=== PATIENT | male | born 1940 | race Caucasian/White ===

== ENCOUNTER 2019-11-25 02:11 | Outpatient (CLI) | payer OTHER, SELFPAY ==
[2019-11-25 16:24] LABS: Abs Immature Grans 0.01 k/cumm (0.0-0.09); Absolute Basophil Count 0.01 k/cumm (0.0-0.2); Absolute Eosinophil Count 0.08 k/cumm (0.0-0.7); Absolute Monocyte Count 0.89 k/cumm (0.11-0.7); Absolute Neutrophil Count 4.55 k/cumm (1.2-6.7); Basophils % 0.1; Eosinophils % 1.1; HCT 52.6 % (40.0-50.0); HGB 18.1 g/dL (13.5-17.5); Immature Grans % 0.1 %; Lymphocytes % 22.4; Mean Corp. HGB Concentration 34.4 g/dL (32.0-36.0); Mean Corpuscular Hemoglobin 31.3 pg (27.0-33.0); Mean Corpuscular Volume 90.8 fL (80-95); Mean Platelet Volume 9.3 fL (8.0-11.0); Monocytes % 12.5; Neutrophils % 63.8; Platelet Count 199 x1000/uL (130-400); RBC 5.79 m/cumm (4.50-6.00); RBC Distribution Width 13.3 % (11.8-14.1); White Blood Cell Count 7.14 k/cumm (4.4-10.8)
[2019-11-25 17:15] LABS: BUN 12 mg/dL (7-18); CREATININE 1.24 mg/dL (0.70-1.30); Estimated GFR 56.53 (mL/min/1.73m2); Ferritin 69 ng/mL (26-388)
[2019-11-25 17:31] LABS: Total Iron Binding Capacity 318 ug/dL (250-450)
[2019-11-28 11:02] LABS: Iron 140 ug/dL (65-175)
[2019-11-28 13:30] LABS: Transferrin 223 mg/dL (201-352)
[2019-11-29 12:07] LABS: Sex Hormone Binding Globulin 38.6 nmol/L (21.6-113.1)
[2019-11-30 18:40] LABS: Testosterone, Total 1160 ng/dL (240-950)
== END 2019-11-25 02:31 ==
PROVIDERS: PCP Internal Medicine; Visit Provider Nurse Practitioner Adult Health
DX: D75.1 Secondary polycythemia (principal); E29.1 Testicular hypofunction
CPT/HCPCS: 36415; 84402; 84403; 84520; 85027; 86255; 82040; 82565; 82728; 83540; 83550; 84270; 84466; 85025

== ENCOUNTER 2020-07-23 22:47 | Inpatient (IN) | payer OTHER, SELFPAY ==
--- NOTE | 2020-07-23 23:00 | W.ED.GENAD ---
Discharge Plan Disposition Patient Disposition: [facility] INPATIENT Condition: Good Discharge Details Clinical Impression: Fever, Sepsis, Pneumonia, Hypoxemia Primary Care Provider: Charissa Mendez ED Provider: Enmanuel Hammer Home Meds and New Rx's Prescriptions: No Action aspirin 81 MG tablet,chewable 81 mg PO DAILY RF: 0 albuterol sulfate [ProAir HFA] 8.5 GM HFA aerosol inhaler 1 - 2 puff Inhalation Q6H PRN RF: 0 multivitamin [Daily Value] 1 EACH tablet 1 ea PO DAILY RF: 0 ascorbic acid (vitamin C) [Vitamin C] 1,000 MG tablet 1,000 mg PO DAILY RF: 0 coenzyme Q10 50 MG capsule 100 mg PO DAILY RF: 0 niacinamide [Niacin (niacinamide)] 500 MG tablet 500 mg PO DAILY RF: 0 alprostadil [Edex] 20 MCG kit 20 mcg IC weekly RF: 0 cetirizine 10 MG tablet,chewable 10 mg PO DAILY RF: 0 omega-3 fatty acids-fish oil 1 EACH capsule 1 ea PO DAILY RF: 0 fluticasone furoate [Flonase Sensimist] 9.9 ML spray,suspension 9.9 ml NS DAILY RF: 0 azelastine 205.5 MCG/0.137 ML spray,non-aerosol 205.5 mcg NS BID RF: 0 cpap RF: 0 testosterone RF: 0 simvastatin 20 MG tablet 20 mg PO DAILY RF: 0 hydrochlorothiazide 12.5 MG capsule 25 mg PO DAILY RF: 0 doxycycline hyclate [Doryx] 100 MG tablet,delayed release (DR/EC) 100 mg PO BID Qty: 20 RF: 0 atorvastatin 20 mg tablet 20 mg PO DAILY RF: 0 amlodipine 2.5 mg tablet 2.5 mg PO DAILY RF: 0 ferrous sulfate 325 mg (65 mg iron) tablet 325 mg PO DAILY RF: 0 losartan 100 mg tablet 100 mg PO DAILY RF: 0 loratadine 10 mg Tablet 10 mg PO DAILY RF: 0 Medical Decision Making 79-year-old male with a past medical history of reactive airway disease, high cholesterol, hypertension, sleep apnea, presents today for fever. The patient sees a physician in [place] regularly for evaluation of his heart as he has been having occasional skipped beats. He has been going back and forth for the last few weeks, he was just down there within the past week. Today he noticed a sudden onset fever, T-max at home was 102-103. He took Tylenol and Motrin, and came to the ER for further evaluation. He denies any chest pain shortness of breath. He denies any tearing or ripping sensation or chest heaviness. He denies any nausea vomiting or diarrhea. He denies any other sick contacts that he is aware of. He did smoke but quit back in 1983. He does state that when he was younger he used to get pneumonia fairly regularly this feels somewhat similar although he denies any significant cough at this time. He denies headache or neck pain. No other complaints at this time. No other modifying factors. Physical exam demonstrates mild tachycardia, he is febrile, oxygen saturation is in the low 90s, dropped to 89 when he began speaking. However his respirations do not appear overly labored. He denies any smoke/tobacco use since 1983. Lung sounds are slightly diminished but otherwise clear. Differential includes coronavirus, less likely PE. Bacterial pneumonia is also on the differential in conjunction with mild reactive airway disease. He has 2 breathing treatments, gently rehydrate, monitor closely and reassess. 1:30 AM Laboratory work-up has returned, white count is only 12, mild neutrophilia, mild lymphopenia, D-dimer high, VBG stable, elevated lactate of 2.2, electrolytes stable aside for slightly low potassium at 3.2 which will be corrected. Troponin stable EKG unremarkable, pro Galo slightly elevated. CT scan shows bilateral mild atelectasis versus infiltrate. No other significant abnormalities. Rapid RSV flu and Covid have all returned negative however the patient did just have symptom onset within the last 12 hours, so I would not be surprised if this is a potential Covid false negative. Patient's oxygenation remains in the low 90s to high 80s even after breathing treatments. I do feel that the patient would benefit from his admission due to his low oxygen, risk factors and symptomatology. Suspect the source/etiology is essentially viral however out of an abundance of precaution after discussion with hospitalist will start a dose of Rocephin and doxycycline here. Patient has already received Decadron. Patient will be admitted for further management. Symptoms appear inconsistent with meningitis at this time. Still pending urinalysis. I have extensively reviewed the treatment plan with the patient. I have addressed all patient concerns at this time. I have also discussed the plan with the admitting physician and they agree with the current assessment and plan and have agreed to assume responsibility for the patient. All parties demonstrate verbal understanding and agreement with our assessment and plan at this time. EKG 00: 09 Rate 89, sinus rhythm, intervals normal, no significant ST elevations or depressions, inverted T wave is present in lead III. No evidence of STEMI. No prior EKG for comparison. FINDINGS: Pulmonary arteries: No evidence of pulmonary embolism. Aorta: No aortic aneurysm. No aortic dissection. Lungs: Mild bibasilar atelectasis or infiltrate, greater on the left. Pleural space: No pleural effusion or pneumothorax. Heart: The heart is mildly enlarged. No pericardial effusion. Lymph nodes: No pathologically enlarged lymph nodes. Gallbladder and bile ducts: Cholelithiasis. Kidneys and ureters: There are multiple renal cysts. Bones/joints: No acute fracture. No destructive bone lesion. Soft tissues: Unremarkable. Other findings: There is motion artifact. IMPRESSION: 1. No evidence of pulmonary embolism. 2. Mild bibasilar atelectasis or infiltrate. 3. Cholelithiasis. Thank you for allowing us to participate in the care of your patient. Dictated and Authenticated by: Shaquille Harding MD 07/24/2020 1:12 AM Eastern Time ([place] & [place]) HPI General Date/Time Provider Initiated Documentation: 07/23/20 22:47. HPI Narrative: 79-year-old male with a past medical history of reactive airway disease, high cholesterol, hypertension, sleep apnea, presents today for fever. The patient sees a physician in [place] regularly for evaluation of his heart as he has been having occasional skipped beats. He has been going back and forth for the last few weeks, he was just down there within the past week. Today he noticed a sudden onset fever, T-max at home was 102-103. He took Tylenol and Motrin, and came to the ER for further evaluation. He denies any chest pain shortness of breath. He denies any tearing or ripping sensation or chest heaviness. He denies any nausea vomiting or diarrhea. He denies any other sick contacts that he is aware of. He did smoke but quit back in 1983. He does state that when he was younger he used to get pneumonia fairly regularly this feels somewhat similar although he denies any significant cough at this time. He denies headache or neck pain. No other complaints at this time. No other modifying factors. Related Data Home Medications Medication Instructions Recorded Confirmed hydrochlorothiazide 25 mg PO DAILY 07/21/15 07/24/20 simvastatin 20 mg PO DAILY 07/21/15 01/06/18 albuterol sulfate [ProAir HFA] 1 - 2 puff INHALATION Q6H PRN 11/17/17 01/06/18 inhaler alprostadil [Edex] 20 mcg IC weekly kit 11/17/17 01/06/18 ascorbic acid (vitamin C) [Vitamin 1,000 mg PO DAILY 11/17/17 01/06/18 C] aspirin 81 mg PO DAILY tab-cap 11/17/17 07/24/20 azelastine 205.5 mcg NS BID 11/17/17 01/06/18 cetirizine 10 mg PO DAILY tab-cap 11/17/17 01/06/18 coenzyme Q10 100 mg PO DAILY 11/17/17 07/24/20 fluticasone furoate [Flonase 9.9 ml NS DAILY 11/17/17 01/06/18 Sensimist] multivitamin [Daily Value] 1 ea PO DAILY 11/17/17 01/06/18 niacinamide [Niacin (niacinamide)] 500 mg PO DAILY 11/17/17 07/24/20 omega-3 fatty acids-fish oil 1 ea PO DAILY 11/17/17 07/24/20 doxycycline hyclate [Doryx] 100 mg PO BID #20 tabcr 01/06/18 amlodipine 2.5 mg PO DAILY 07/24/20 07/24/20 atorvastatin 20 mg PO DAILY 07/24/20 07/24/20 ferrous sulfate 325 mg PO DAILY 07/24/20 07/24/20 loratadine 10 mg PO DAILY 07/24/20 07/24/20 losartan 100 mg PO DAILY 07/24/20 07/24/20 Previous Rx's Medication Instructions Recorded doxycycline hyclate [Doryx] 100 mg PO BID #20 tabcr 01/06/18 Allergies Allergy/AdvReac Type Severity Reaction Status Date / Time tree and shrub pollen AdvReac Mild spring time Unverified 01/06/18 09:39 Review of Systems All systems reviewed & are unremarkable except as noted in HPI and below PFSH Medical History Asthma HTN (hypertension) Surgical History Colonoscopy - MAC (12/04/17) Family History Father Colon cancer Social History Smoking/Tobacco Use Status: Former Tobacco Use Smoking risk assessment performed?: Yes Alcohol Intake: current Alcohol Intake frequency: 0-2 drinks per day Alcohol type: wine Drug use: Never Substance use type: does not use Do you feel safe at home: Yes Do you feel safe in your relationship?: Yes Exam Narrative Exam Narrative: 1.Const: Well-nourished, Well-developed, appearing stated age 2.Eyes: PERRL, no conjunctival injection, and symmetrical lids. 3.ENT: Atraumatic external nose and ears. Dry MM. Neck: Symmetric, trachea midline, No thyromegaly. No erythema in the posterior oropharynx. 4.CVS: +S1/S2, No murmurs or gallops. Peripheral pulses 2+ and equal in all extremities. Brisk capillary refill in all extremities. 5.RESP: Unlabored respiratory effort. Clear to auscultation bilaterally but slightly diminished. No wheezes rales or rhonchi 6.GI: Soft, Nontender/Nondistended, No hepatosplenomegaly. No guarding or rebound. 7.MSK: Normocephalic/Atraumatic, Extremities w/o deformity or ttp No cyanosis or clubbing, Normal movement of all extremities, no calf tenderness. 8.Skin: Warm, Dry. No rashes or lesions. 9.Neuro: lathe sander II-XII grossly intact. Sensation grossly intact, no focal neurologic deficits. 10.Psych: (AAO) x3. Appropriate mood and affect
[2020-07-23 23:03] VITALS: BP 132/64; PULSE 111; RESP 20; TEMP 38.4; O2SAT 91
--- NOTE | 2020-07-23 23:15 | DI.CT_ITS ---
EXAM: CT CHEST PE CTA CLINICAL HISTORY: SOB, hypoxic, febrile, tachy, concern for PE/covid. TECHNIQUE: Imaging Protocol: Axial CT angiography was performed with multi-slice acquisition and mu lti-planar and/or 3D reconstructions. CONTRAST MATERIAL: Intravenous: Omnipaque 350 Contrast volume:100 mL COMPARISON: No exams were available for comparison FINDINGS: Pulmonary Arteries: No evidence of filling defect to suggest pulmonary emboli. Tracheobronchial tree: Patent where visualized. Mediastinum and Mavis: There is a small hiatal hernia. Pulmonary parenchyma: There are infiltrates seen in the dependent portions of the lungs bilaterally. No focal consolidating infiltrates are seen. No architectural distortion. Pleura: No effusion or pneumothorax. Heart: The heart is mildly enlarged. Mild coronary artery calcification is present. No significant pericardial effusion is present. Aorta: Thoracic aorta non-dilated. Atherosclerosis. No evidence of aortic dissection. Upper abdomen: Cholelithiasis. Left renal cyst. No biliary ductal dilatation. Bones: Degenerative changes in the spine. Soft tissues: Unremarkable. IMPRESSION: 1. No evidence of pulmonary embolism, thoracic aortic dissection or aneurysm. 2. Dependent infiltrates in the lung bases. This may represent atelectasis or pneumonia. 3. Cholelithiasis. RADIATION DOSE DELIVERED: 483.68mGy.cm Total DLP DATA REPOSITORY: All CT scans at this facility are submitted to the National Radiology Data Registry (NRDR) Dose Index Registry (DIR) with the [employer] (ACR). RADIATION OPTIMIZATION: All CT scans at this facility use at least one of these dose optimization te chniques: automated exposure control; mA and/or kV adjustment per patient size (includes targeted exa ms where dose is matched to clinical indication); or iterative reconstruction.
--- NOTE | 2020-07-23 23:15 | RT.EKG_ITS ---
APPROVED REPORT Exam: Resting ECG Patient Location: E HR:89 bpm ECG Measurements Heart Rate 89 AXIS MI 198 P 43 QRSd 113 QRS -17 QT 363 T 9 QTc 442 Conclusion Sinus rhythm...normal P axis, V-rate 60- 99 Probable left atrial enlargement...P >50mS, <-0.10mV V1 Physician:Rate 89, sinus rhythm, intervals normal, no significant ST elevations or depressions, inver danay T wave is present in lead III. No evidence of STEMI. No prior EKG for comparison.
[2020-07-23 23:16] VITALS: BP 126/59; PULSE 113; O2SAT 91
[2020-07-23] MEDS: Albuterol/Ipratropium 3 ML UPD VIAL 6 ML UPD (23:42)
[2020-07-23] MEDS: Dexamethasone 10 MG/ML VIAL 6 MG IVP (23:42)
[2020-07-23 23:45] VITALS: RESP 26; O2SAT 91
[2020-07-23 23:46] LABS: BE (Venous) 3 mmol/L (-2-3); HCO3 (Venous) 27 mmol/L (23-28); O2 Sat (Venous) 93 %; TCO2 (Venous) 22 mmol/L (24-29); pCO2 (Venous) 39 mmHg (41-51); pH (Venous) 7.45 (7.31-7.41); pO2 (Venous) 63 mmHg
[2020-07-23 23:47] LABS: Abs Immature Grans 0.04 10^3/uL (0.0-0.06); Absolute Basophil Count 0.01 10^3/uL (0.0-0.2); Absolute Eosinophil Count 0.01 10^3/uL (0.0-0.7); Absolute Lymphocyte Count 0.37 10^3/uL (1.2-3.4); Absolute Monocyte Count 0.79 10^3/uL (0.1-0.8); Basophils % 0.1; Eosinophils % 0.1; HCT 52.3 % (40.0-50.0); HGB 17.8 g/dL (13.5-17.5); Immature Grans % 0.3; Lactate 2.2 mmol/L (0.6-1.4); Lymphocytes % 3.1; MCH 30.9 pg (27.0-33.0); MCV 90.8 fL (80-95); MPV 9.6 fL (8.0-11.0); Monocytes % 6.6; Neutrophils % 89.8; Nucleated RBC 0 %; Platelet Count 201 10^3/uL (130-400); RBC 5.76 10^6/uL (4.36-5.78); RDW 13.1 % (11.8-14.1); WBC 12.04 10^3/uL (4.4-10.8)
[2020-07-23 23:49] LABS: Absolute Neutrophil Count 10.81 10^3/uL (1.2-6.7)
[2020-07-24] VITALS (17 sets, daily range): BP systolic 108–135; BP diastolic 55–76; PULSE 61–87; RESP 1–19; TEMP 36–37.3; O2SAT 91–98
[2020-07-24] MEDS: Normal Saline 500 ML IV (00:02)
[2020-07-24 00:04] LABS: ALT 36 U/L (16-63); AST 29 U/L (15-37); Albumin 3.8 g/dL (3.4-5.0); Alkaline Phosphatase 77 U/L (46-116); Anion Gap 13.2 mmol/L (3-11); BUN 19 mg/dL (7-18); Bilirubin, Total 0.9 mg/dL (0.2-1.0); C-Reactive Protein 0.29 mg/dL (0.0-0.3); CO2 25.8 mmol/L (21.0-32.0); CREATININE 1.44 mg/dL (0.70-1.30); Chloride 101 mmol/L (98-107); Estimated GFR 47.45 (mL/min/1.73m2); Glucose 131 mg/dL (74-106); LDH 137 U/L (85-227); Potassium 3.2 mmol/L (3.5-5.1); Sodium 140 mmol/L (136-145); Total Protein 6.9 g/dL (6.4-8.2)
[2020-07-24 00:09] LABS: Troponin I < 0.05 ng/mL (<0.06)
[2020-07-24 00:19] LABS: D-Dimer 1009 ng/mlFEU (<500)
[2020-07-24] MEDS: Omnipaque 350 MG/ML 100 ML BTL IJ (00:19)
[2020-07-24 00:31] LABS: Source Nasopharynx
[2020-07-24 00:32] LABS: Ferritin 109 ng/mL (26-388)
[2020-07-24 00:37] LABS: Procalcitonin 0.9 ng/mL
[2020-07-24] MEDS: POTASSIUM CHLORIDE 20 MEQ/100 ML BAG 50 MEQ IVPB (00:45)
[2020-07-24] MEDS: Normal Saline Flush 10 ML SYR IVP ×4 (00:48→21:33)
[2020-07-24] MEDS: Normal Saline - Diluent 50 ML VIAL IV (00:48)
--- NOTE | 2020-07-24 01:12 | DI.VRAD_ITS ---
PROCEDURE INFORMATION: Exam: CT Angiography Chest With Contrast Exam date and time: 07/23/2020 11:31 PM Age: 79 years old Clinical indication: Fever and shortness of breath and other: Hypoxic, tachy; Patient HX: SOB, hypoxic, febrile, tachy, concern for pe/covid TECHNIQUE: Imaging protocol: Computed tomographic angiography of the chest with intravenous contrast. 3D rendering (Not supervised by radiologist): MIP and/or 3D reconstructed images were created by the technologist. Radiation optimization: All CT scans at this facility use at least one of these dose optimization techniques: automated exposure control; mA and/or kV adjustment per patient size (includes targeted exams where dose is matched to clinical indication); or iterative reconstruction. Contrast material: OMNIPAQUE 350; Contrast volume: 100 ml; Contrast route: INTRAVENOUS (IV); COMPARISON: CR CHEST 2 VIEWS PA,LAT 12/30/2017 2:08 PM FINDINGS: Pulmonary arteries: No evidence of pulmonary embolism. Aorta: No aortic aneurysm. No aortic dissection. Lungs: Mild bibasilar atelectasis or infiltrate, greater on the left. Pleural space: No pleural effusion or pneumothorax. Heart: The heart is mildly enlarged. No pericardial effusion. Lymph nodes: No pathologically enlarged lymph nodes. Gallbladder and bile ducts: Cholelithiasis. Kidneys and ureters: There are multiple renal cysts. Bones/joints: No acute fracture. No destructive bone lesion. Soft tissues: Unremarkable. Other findings: There is motion artifact. IMPRESSION: 1. No evidence of pulmonary embolism. 2. Mild bibasilar atelectasis or infiltrate. 3. Cholelithiasis. Dictated and Authenticated by: Shaquille Harding MD. Ordering:ELIZABETH Singer MD
[2020-07-24 01:18] LABS: COVID-19 PCR Negative (Negative); Influenza A PCR Negative (Negative); Influenza B PCR Negative (Negative); RSV PCR Negative (Negative)
--- NOTE | 2020-07-24 01:22 | W.PM.HP.N ---
Date of service: 07/24/20 Time of Service: Assessment and Plan Assessment and plan (1) Fever: Status: Acute Assessment and plan: Fever. Unclear source at present. The drop in O2 sats (states he usually runs mid-90s) along with (questionable) CT findings suggestive of pulmonary source and will treat for bacterial pneumonia provisionally, at least until blood cxx return (note that U/A still pending at this time). I would add that I would keep Covid in differential with potential false negative test as this is early in course of whatever illness he has. History of Present Illness History of Present Illness Chief Complaint: fever Narrative: 79 male here with one day of fever, to 103 at home, along with myalgias. Note recent travel (past week) to [place] to see his doctor. In ER findings of note for temp to 38.4, O2 sats low 90s, white count 12, CTA neg PE with bibasilar atelectatsis vs infiltrate, d-Dimer 1009 and COVID PCR negative (flu also neg). Patient ordered for Rocephin/Doxy and admitted for further management. Denies cough, CP or SOB. At present time says he feels much better. Review of Systems All systems reviewed & are unremarkable except as noted in HPI and below PFSH Medical History Asthma HTN (hypertension) Surgical History Colonoscopy - MAC (12/04/17) Family History Father Colon cancer Social History Smoking/Tobacco Use Status: Former Tobacco Use Smoking risk assessment performed?: Yes Alcohol Intake: current Alcohol Intake frequency: 0-2 drinks per day Alcohol type: wine Drug use: Never Substance use type: does not use Do you feel safe at home: Yes Do you feel safe in your relationship?: Yes Meds Home Medications and Allergies Home Medications Medication Instructions Recorded Confirmed Type hydrochlorothiazide 25 mg PO DAILY 07/21/15 07/24/20 History simvastatin 20 mg PO DAILY 07/21/15 01/06/18 History Cpap 11/17/17 Clinic Testosterone 11/17/17 Clinic albuterol sulfate [ProAir HFA] 1 - 2 puff INHALATION Q6H PRN 11/17/17 01/06/18 History inhaler alprostadil [Edex] 20 mcg IC weekly kit 11/17/17 01/06/18 History ascorbic acid (vitamin C) [Vitamin 1,000 mg PO DAILY 11/17/17 01/06/18 History C] aspirin 81 mg PO DAILY tab-cap 11/17/17 07/24/20 History azelastine 205.5 mcg NS BID 11/17/17 01/06/18 History cetirizine 10 mg PO DAILY tab-cap 11/17/17 01/06/18 History coenzyme Q10 100 mg PO DAILY 11/17/17 07/24/20 History fluticasone furoate [Flonase 9.9 ml NS DAILY 11/17/17 01/06/18 History Sensimist] multivitamin [Daily Value] 1 ea PO DAILY 11/17/17 01/06/18 History niacinamide [Niacin (niacinamide)] 500 mg PO DAILY 11/17/17 07/24/20 History omega-3 fatty acids-fish oil 1 ea PO DAILY 11/17/17 07/24/20 History doxycycline hyclate [Doryx] 100 mg PO BID #20 tabcr 01/06/18 Rx amlodipine 2.5 mg PO DAILY 07/24/20 07/24/20 History atorvastatin 20 mg PO DAILY 07/24/20 07/24/20 History ferrous sulfate 325 mg PO DAILY 07/24/20 07/24/20 History loratadine 10 mg PO DAILY 07/24/20 07/24/20 History losartan 100 mg PO DAILY 07/24/20 07/24/20 History Allergies Allergy/AdvReac Type Severity Reaction Status Date / Time tree and shrub pollen AdvReac Mild spring time Unverified 01/06/18 09:39 Exam Narrative Exam Narrative: 114/62, 85, 37.3, 19, 92% RA. HEENT unremarkable; neck supple; lungs clear; heart RRR; abdomen soft and NT; extremities trace pedal edema; neuro Ox3, nonfocal Results Labs Result diagrams: 07/23/20 23:35 07/23/20 23:35 Labs: Laboratory Results - last 24 hr 07/23/20 07/23/2020 23:35 23:35 23:35 WBC 12.04 H RBC 5.76 Hgb 17.8 H Hct 52.3 H MCV 90.8 MCH 30.9 MCHC 34.0 RDW 13.1 Plt Count 201 MPV 9.6 Immature Gran % 0.3 Neutrophils % 89.8 Lymphocytes % 3.1 Monocytes % 6.6 Eosinophils % 0.1 Basophils % 0.1 Nucleated RBC % 0 Absolute Neutrophils 10.81 H Absolute Lymphocytes 0.37 L Absolute Monocytes 0.79 Absolute Eosinophils 0.01 Absolute Basophils 0.01 D-Dimer VBG pH 7.45 H VBG pCO2 39 L VBG pO2 63 VBG HCO3 27 VBG Total CO2 22 L VBG O2 Saturation 93 VBG Base Excess 3 VBG Lactate Sodium 140 Potassium 3.2 L Chloride 101 Carbon Dioxide 25.8 Anion Gap 13.2 H BUN 19 H Creatinine 1.44 H Estimated GFR/1.73 m2 47.45 Glucose 131 H Calcium 9.0 Ferritin 109 Total Bilirubin 0.9 AST 29 ALT 36 Alkaline Phosphatase 77 Lactate Dehydrogenase 137 Troponin I < 0.05 C-Reactive Protein 0.29 Total Protein 6.9 Albumin 3.8 Procalcitonin SARS-CoV-2 (PCR) Nasopharyn COVID-19 PCR Ref Test Perform Site 07/23/20 07/23/20 07/23/20 23:35 23:35 23:40 WBC RBC Hgb Hct MCV MCH MCHC RDW Plt Count MPV Immature Gran % Neutrophils % Lymphocytes % Monocytes % Eosinophils % Basophils % Nucleated RBC % Absolute Neutrophils Absolute Lymphocytes Absolute Monocytes Absolute Eosinophils Absolute Basophils D-Dimer 1009 H VBG pH VBG pCO2 VBG pO2 VBG HCO3 VBG Total CO2 VBG O2 Saturation VBG Base Excess VBG Lactate 2.2 H* Sodium Potassium Chloride Carbon Dioxide Anion Gap BUN Creatinine Estimated GFR/1.73 m2 Glucose Calcium Ferritin Total Bilirubin AST ALT Alkaline Phosphatase Lactate Dehydrogenase Troponin I C-Reactive Protein Total Protein Albumin Procalcitonin 0.9 SARS-CoV-2 (PCR) Cancelled Nasopharyn COVID-19 PCR Cancelled Ref Test Perform Site Cancelled Last Vital Signs Temp 37.3 C 07/24/20 00:45 Pulse 85 07/24/20 00:51 Resp 19 07/24/20 00:16 BP 114/62 07/24/20 00:51 Pulse Ox 92 07/24/20 00:51 COVID-19 Screening Have you, or household traveled for leisure in last 14 days?: Yes Had IN PERSON contact w/suspected or confirmed C-19 person: No
[2020-07-24 01:41] LABS: Bilirubin Negative (Negative); Blood Trace-intact (Negative); Clarity Clear (Clear); Glucose Negative (Negative); Ketones Negative (Negative); Leukocyte Esterase Negative (Negative); Nitrite Negative (Negative); Urobilinogen 0.2 EU/dL (Up TO 0.2)
[2020-07-24 01:45] LABS: Bacteria Rare HPF (Negative); C & S Indicated? No; Casts Negative LPF (Negative); Crystals Negative HPF (Negative); Epithelial Cells Rare HPF (Negative); Mucus Negative (Negative); WBC 0-2 HPF (0-5)
[2020-07-24] MEDS: cefTRIAXone 2 GM/50 ML BAG IVPB (01:49)
[2020-07-24] MEDS: DOXYCYCLINE 100 MG in Normal Saline 100 ML IVPB ×2 (02:18→14:45)
[2020-07-24 07:35] LABS: HGB 16.8 g/dL (13.5-17.5); MCH 30.5 pg (27.0-33.0); MCHC 33.6 % (32.0-36.0); MCV 90.7 fL (80-95); MPV 9.7 fL (8.0-11.0); Platelet Count 194 10^3/uL (130-400); RBC 5.51 10^6/uL (4.36-5.78); RDW 13.1 % (11.8-14.1); RDW-SD 44.3 fL; WBC 17.59 10^3/uL (4.4-10.8)
[2020-07-24 07:42] LABS: Anion Gap 8.4 mmol/L (3-11); BUN 19 mg/dL (7-18); CO2 26.6 mmol/L (21.0-32.0); CREATININE 1.29 mg/dL (0.70-1.30); Calcium 8.9 mg/dL (8.5-10.1); Chloride 103 mmol/L (98-107); Estimated GFR 53.87 (mL/min/1.73m2); Glucose 165 mg/dL (74-106); Potassium 4.2 mmol/L (3.5-5.1); Sodium 138 mmol/L (136-145)
[2020-07-24 08:44] LABS: Lactate 1.7 mmol/L (0.6-1.4)
[2020-07-24 08:58] LABS: C-Reactive Protein 3.07 mg/dL (0.0-0.3)
[2020-07-24] MEDS: amLODIPine 2.5 MG TAB PO (09:15)
[2020-07-24] MEDS: Losartan 50 MG TAB 100 MG PO (09:16)
[2020-07-24] MEDS: Aspirin 81 MG CHEW PO (09:17)
--- NOTE | 2020-07-24 09:17 | PDOC.CMIN ---
- If Service Date Differs Date of service: 07/24/20 Time of Service: 09:17 Care Management Initial Assess REASON FOR HOSPITALIZATION:: Fever PAST MEDICAL HISTORY/PAST SURGICAL HISTORY:: HTN, Asthma PREVIOUS FUNCTIONAL STATUS/SOCIAL/FAMILY SUPPORTS:: Shahzad is independent at home, he states he continues to work fulltime in [place]. During COVID he has been able to work from his home in [place]. He states he is very active he and his are both independent. He has a supportive family here and in [place]. CURRENT FUNCTIONAL STATUS:: Shahzad is alert and engaged over the phone. He is feeling better today however he does not want to be discharged until he is ready and when the infection in undercontrol. He states he does not have any additional needs at discharge his family is supportive. He states his spouse will drive him home at time of discharge. ADVANCE DIRECTIVES:: He reports he has a living will and his spouse is his agent Has patient been provided with info about the portal/API?: No Did the patient sign up for the portal?: No CODE STATUS:: Full Code INSURANCE COVERAGE / FINANCIAL ISSUES:: Mai [employer]ifton CURRENT HOME/COMMUNITY SERVICES/EQUIPMENT:: No current services. PRIMARY CARE PHYSICIAN:: Charissa Mendez MD at [place], [place]. POTENTIAL DISCHARGE NEEDS:: Follow up with primary care as directed. PATIENT/FAMILY EDUCATION NEEDS:: Discharge education, limitations and follow up plan of care including ask me three ANTICIPATED BARRIERS TO DISCHARGE:: No anticipated barriers TRANSPORTATION:: Via private car with spouse. PLAN:: Shahzad will be discharged home when medically ready per provider. No anticpated discharged needs. CM did review observation status with the patient. CM will continue to provide support for discharge planning to patient and family.
[2020-07-24] MEDS: Dexamethasone 4 MG TAB 6 MG PO (09:27)
[2020-07-24] MEDS: Ipratropium/Albuterol 4 GM 120 PUFF INH IH ×3 (12:00→18:34)
--- NOTE | 2020-07-24 16:41 | PHA.REVIEW ---
Pharmacy Admission Review - Admission Clinical Review (Last Reviewed 07/24/20 @ 01:31 by Richi Fitch MD) Fever (Acute) Sepsis (Acute) Pneumonia (Acute) Hypoxemia (Acute) tree and shrub pollen Adverse Reaction (Mild, Unverified 01/06/18 09:39) spring time Height 5 ft 7 in Weight 84.822 kg - Renal Dosing Renal Dosing: BUN 19 mg/dL (7-18) H 07/24/20 07:00 Creatinine 1.29 mg/dL (0.70-1.30) 07/24/20 07:00 Medications needing adjustments: Reviewed (CRCL ~44ML/MIN) - Anticoagulation Anticoagulation: Hgb 16.8 g/dL (13.5-17.5) 07/24/20 07:00 Hct 50.0 % (40.0-50.0) 07/24/20 07:00 Plt Count 194 10^3/uL (130-400) 07/24/20 07:00 Creatinine 1.29 mg/dL (0.70-1.30) 07/24/20 07:00 DVT Prohphylaxis: Intervened (sent message to provider asking if appropriate) Therapeutic Anticoagulation: N/A - Relevant Labs Sodium 138 mmol/L (136-145) 07/24/20 07:00 Potassium 4.2 mmol/L (3.5-5.1) D 07/24/20 07:00 Chloride 103 mmol/L (98-107) 07/24/20 07:00 C-Reactive Protein 3.07 mg/dL (0.0-0.3) H 07/24/20 08:37 Electrolytes, C-Reactive P, ESR: Reviewed - DM Control DM Control: Glucose 165 mg/dL (74-106) H 07/24/20 07:00 - Heart Failure/NH Heart Failure/NH: Troponin I Cancelled 07/24/20 02:29 - BP Control BP Control: Blood Pressure 127/63 Blood Pressure 125/76 - Qtc Review If Elevated: N/A (442) - IV to PO Switch IV Medications: Reviewed (iv ABX) - Home Meds Home Med List reviewed: Reviewed Relevent Home Meds Not ordered & why?: hctz, ferrous sulfate, - Current meds Current Medication Order Review: Reviewed Antibiotic Activity - Antibiotic Information Antibiotic Review Info: doxy, pip/tazo IV
[2020-07-24] MEDS: PIPERACILLIN/TAZO 3.375 GM in Normal Saline 50 ML IVPB ×2 (16:53→21:32)
--- NOTE | 2020-07-24 16:58 | W.PM.PROGNOT ---
Date of Service Date of service: 07/24/20 Time of Service: 16:58 Subjective Subjective Interval history since last seen: Patient seen and examined. Blood cx positive for GNR. Patient states that he has a cardiac valve issue (does not know which valve or issue), for which he used to have to take antibiotic prophylaxis if he went to a dentist. He just saw his dentist a couple of weeks ago, without antibiotic prophylaxis. Subjective low grade fevers for about 1 week at home. No implanted devices/joints. At this point, the concern is for subacute endocarditis. Still a PUI as he has returned from [place] less than 1 week ago, even with a negative COVID-19 test. Will continue precautions. No longer requiring oxygen today. On decadron from presumed covid-19, with low threshold to stop if repeat covid-19 test (to be done on Thursday) negative. Antibiotics changed to vancomycin/zosyn. Echo ordered. Trial PPI for voice hoarseness, though no symptoms of GERD. Continue antihistamines/nasal spray for post-nasal drip. Needs an ENT follow up (patient states already scheduled) to r/o malignancy as he is a former smoker. Objective Last Vital Signs Temp 36.4 C L 07/24/20 12:06 Pulse 61 07/24/20 12:06 Resp 18 07/24/20 12:06 BP 127/63 07/24/20 12:06 Pulse Ox 98 07/24/20 12:06 Laboratory Results - last 24 hr 07/23/20 07/23/20 07/23/20 23:35 23:35 23:35 WBC 12.04 H RBC 5.76 Hgb 17.8 H Hct 52.3 H MCV 90.8 MCH 30.9 MCHC 34.0 RDW 13.1 Plt Count 201 MPV 9.6 Immature Gran % 0.3 Neutrophils % 89.8 Lymphocytes % 3.1 Monocytes % 6.6 Eosinophils % 0.1 Basophils % 0.1 Nucleated RBC % 0 Absolute Neutrophils 10.81 H Absolute Lymphocytes 0.37 L Absolute Monocytes 0.79 Absolute Eosinophils 0.01 Absolute Basophils 0.01 D-Dimer VBG pH 7.45 H VBG pCO2 39 L VBG pO2 63 VBG HCO3 27 VBG Total CO2 22 L VBG O2 Saturation 93 VBG Base Excess 3 VBG Lactate Sodium 140 Potassium 3.2 L Chloride 101 Carbon Dioxide 25.8 Anion Gap 13.2 H BUN 19 H Creatinine 1.44 H Estimated GFR/1.73 m2 47.45 Glucose 131 H Calcium 9.0 Ferritin 109 Total Bilirubin 0.9 AST 29 ALT 36 Alkaline Phosphatase 77 Lactate Dehydrogenase 137 Troponin I < 0.05 C-Reactive Protein 0.29 Total Protein 6.9 Albumin 3.8 Procalcitonin Urine Color Urine Clarity Urine pH Ur Specific [place] Urine Protein Urine Ketones Urine Blood Urine Nitrite Urine Bilirubin Urine Urobilinogen Ur Leukocyte Esterase Urine RBC Urine WBC Ur Epithelial Cells Urine Crystals Urine Bacteria Urine Casts Urine Mucus Ur Culture Indicated? Urine Glucose COVID-19 Source SARS-CoV-2 (PCR) Nasopharyn COVID-19 PCR Influenza Type A (PCR) Influenza Type B (PCR) RSV (PCR) Ref Test Perform Site 07/23/20 07/23/20 07/23/20 23:35 23:35 23:40 WBC RBC Hgb Hct MCV MCH MCHC RDW Plt Count MPV Immature Gran % Neutrophils % Lymphocytes % Monocytes % Eosinophils % Basophils % Nucleated RBC % Absolute Neutrophils Absolute Lymphocytes Absolute Monocytes Absolute Eosinophils Absolute Basophils D-Dimer 1009 H VBG pH VBG pCO2 VBG pO2 VBG HCO3 VBG Total CO2 VBG O2 Saturation VBG Base Excess VBG Lactate 2.2 H* Sodium Potassium Chloride Carbon Dioxide Anion Gap BUN Creatinine Estimated GFR/1.73 m2 Glucose Calcium Ferritin Total Bilirubin AST ALT Alkaline Phosphatase Lactate Dehydrogenase Troponin I C-Reactive Protein Total Protein Albumin Procalcitonin 0.9 Urine Color Urine Clarity Urine pH Ur Specific [place] Urine Protein Urine Ketones Urine Blood Urine Nitrite Urine Bilirubin Urine Urobilinogen Ur Leukocyte Esterase Urine RBC Urine WBC Ur Epithelial Cells Urine Crystals Urine Bacteria Urine Casts Urine Mucus Ur Culture Indicated? Urine Glucose COVID-19 Source SARS-CoV-2 (PCR) Cancelled Nasopharyn COVID-19 PCR Cancelled Influenza Type A (PCR) Influenza Type B (PCR) RSV (PCR) Ref Test Perform Site Cancelled 07/24/20 07/24/20 07/24/20 00:00 01:30 02:29 WBC RBC Hgb Hct MCV MCH MCHC RDW Plt Count MPV Immature Gran % Neutrophils % Lymphocytes % Monocytes % Eosinophils % Basophils % Nucleated RBC % Absolute Neutrophils Absolute Lymphocytes Absolute Monocytes Absolute Eosinophils Absolute Basophils D-Dimer VBG pH VBG pCO2 VBG pO2 VBG HCO3 VBG Total CO2 VBG O2 Saturation VBG Base Excess VBG Lactate Sodium Potassium Chloride Carbon Dioxide Anion Gap BUN Creatinine Estimated GFR/1.73 m2 Glucose Calcium Ferritin Total Bilirubin AST ALT Alkaline Phosphatase Lactate Dehydrogenase Troponin I Cancelled C-Reactive Protein Total Protein Albumin Procalcitonin Urine Color Yellow Urine Clarity Clear Urine pH 6.0 Ur Specific [place] 1.010 Urine Protein Negative Urine Ketones Negative Urine Blood Trace-intact H Urine Nitrite Negative Urine Bilirubin Negative Urine Urobilinogen 0.2 Ur Leukocyte Esterase Negative Urine RBC 3-5 H Urine WBC 0-2 Ur Epithelial Cells Rare Urine Crystals Negative Urine Bacteria Rare Urine Casts Negative Urine Mucus Negative Ur Culture Indicated? No Urine Glucose Negative COVID-19 Source Nasopharynx SARS-CoV-2 (PCR) Negative Nasopharyn COVID-19 PCR Influenza Type A (PCR) Negative Influenza Type B (PCR) Negative RSV (PCR) Negative Ref Test Perform Site 07/24/20 07/24/20 07/24/20 07:00 07:00 08:37 WBC 17.59 H D RBC 5.51 Hgb 16.8 Hct 50.0 MCV 90.7 MCH 30.5 MCHC 33.6 RDW 13.1 Plt Count 194 MPV 9.7 Immature Gran % Neutrophils % Lymphocytes % Monocytes % Eosinophils % Basophils % Nucleated RBC % Absolute Neutrophils Absolute Lymphocytes Absolute Monocytes Absolute Eosinophils Absolute Basophils D-Dimer VBG pH VBG pCO2 VBG pO2 VBG HCO3 VBG Total CO2 VBG O2 Saturation VBG Base Excess VBG Lactate Sodium 138 Potassium 4.2 D Chloride 103 Carbon Dioxide 26.6 Anion Gap 8.4 BUN 19 H Creatinine 1.29 Estimated GFR/1.73 m2 53.87 Glucose 165 H Calcium 8.9 Ferritin Total Bilirubin AST ALT Alkaline Phosphatase Lactate Dehydrogenase Troponin I C-Reactive Protein 3.07 H Total Protein Albumin Procalcitonin Urine Color Urine Clarity Urine pH Ur Specific [place] Urine Protein Urine Ketones Urine Blood Urine Nitrite Urine Bilirubin Urine Urobilinogen Ur Leukocyte Esterase Urine RBC Urine WBC Ur Epithelial Cells Urine Crystals Urine Bacteria Urine Casts Urine Mucus Ur Culture Indicated? Urine Glucose COVID-19 Source SARS-CoV-2 (PCR) Nasopharyn COVID-19 PCR Influenza Type A (PCR) Influenza Type B (PCR) RSV (PCR) Ref Test Perform Site 07/24/20 08:37 WBC RBC Hgb Hct MCV MCH MCHC RDW Plt Count MPV Immature Gran % Neutrophils % Lymphocytes % Monocytes % Eosinophils % Basophils % Nucleated RBC % Absolute Neutrophils Absolute Lymphocytes Absolute Monocytes Absolute Eosinophils Absolute Basophils D-Dimer VBG pH VBG pCO2 VBG pO2 VBG HCO3 VBG Total CO2 VBG O2 Saturation VBG Base Excess VBG Lactate 1.7 H Sodium Potassium Chloride Carbon Dioxide Anion Gap BUN Creatinine Estimated GFR/1.73 m2 Glucose Calcium Ferritin Total Bilirubin AST ALT Alkaline Phosphatase Lactate Dehydrogenase Troponin I C-Reactive Protein Total Protein Albumin Procalcitonin Urine Color Urine Clarity Urine pH Ur Specific [place] Urine Protein Urine Ketones Urine Blood Urine Nitrite Urine Bilirubin Urine Urobilinogen Ur Leukocyte Esterase Urine RBC Urine WBC Ur Epithelial Cells Urine Crystals Urine Bacteria Urine Casts Urine Mucus Ur Culture Indicated? Urine Glucose COVID-19 Source SARS-CoV-2 (PCR) Nasopharyn COVID-19 PCR Influenza Type A (PCR) Influenza Type B (PCR) RSV (PCR) Ref Test Perform Site
[2020-07-24] MEDS: Enoxaparin 40 MG/0.4 ML SYR SC (17:58)
[2020-07-24] MEDS: Atorvastatin 20 MG TAB PO (19:46)
[2020-07-24] MEDS: Sodium Chloride-Nasal SPRAY-ADULT 44 ML BTL NS (19:48)
[2020-07-25] VITALS (9 sets, daily range): BP systolic 112–135; BP diastolic 60–72; PULSE 57–65; RESP 14–20; TEMP 35.4–36.8; O2SAT 94–99
[2020-07-25] MEDS: Calcium Carbonate *TUMS* 500 MG CHEW PO (00:43)
[2020-07-25] MEDS: Normal Saline Flush 10 ML SYR IVP ×6 (00:43→20:25)
[2020-07-25] MEDS: DOXYCYCLINE 100 MG in Normal Saline 100 ML IVPB ×2 (01:56→14:29)
--- NOTE | 2020-07-25 02:07 | NUR.NOTE ---
Nursing Note: Pt reports that he has a small murmur that previous doctors have recommended antibiotics before a dentist visit. Pt reports taking testosterone often; pt receives regular phlebotomy treatments due to reduced hematocrit. Pt concerned about Hgb and Hct and would like provider to consider a treatment as he has missed his most recent ones. Pt concerned this is impacting his current infection status.
[2020-07-25] MEDS: PIPERACILLIN/TAZO 3.375 GM in Normal Saline 50 ML IVPB ×4 (03:32→22:36)
[2020-07-25] MEDS: Ipratropium/Albuterol 4 GM 120 PUFF INH IH (08:02)
[2020-07-25] MEDS: Dexamethasone 4 MG TAB 6 MG PO (08:22)
[2020-07-25] MEDS: Aspirin 81 MG CHEW PO (08:22)
[2020-07-25] MEDS: amLODIPine 2.5 MG TAB PO (08:24)
[2020-07-25] MEDS: Losartan 50 MG TAB 100 MG PO (08:24)
[2020-07-25] MEDS: Cetirizine 10 MG TAB PO (08:25)
[2020-07-25] MEDS: Pantoprazole 40 MG TABCR PO (08:26)
[2020-07-25] MEDS: Sodium Chloride-Nasal SPRAY-ADULT 44 ML BTL NS ×4 (08:27→20:23)
[2020-07-25 08:35] LABS: Abs Immature Grans 0.08 10^3/uL (0.0-0.06); Absolute Basophil Count 0.02 10^3/uL (0.0-0.2); Absolute Lymphocyte Count 0.61 10^3/uL (1.2-3.4); Basophils % 0.1; Eosinophils % 0.1; HCT 48.8 % (40.0-50.0); HGB 16.7 g/dL (13.5-17.5); Immature Grans % 0.4; Lymphocytes % 3.3; MCH 31.2 pg (27.0-33.0); MCHC 34.2 % (32.0-36.0); Monocytes % 6.5; Neutrophils % 89.6; Nucleated RBC 0 %; Platelet Count 212 10^3/uL (130-400); RBC 5.36 10^6/uL (4.36-5.78); RDW 13.4 % (11.8-14.1); RDW-SD 45.1 fL; WBC 18.56 10^3/uL (4.4-10.8)
[2020-07-25 08:36] LABS: Absolute Eosinophil Count 0.02 10^3/uL (0.0-0.7); Absolute Monocyte Count 1.21 10^3/uL (0.1-0.8); Absolute Neutrophil Count 16.63 10^3/uL (1.2-6.7)
[2020-07-25 08:54] LABS: Anion Gap 8.3 mmol/L (3-11); BUN 19 mg/dL (7-18); C-Reactive Protein 3.45 mg/dL (0.0-0.3); CO2 24.7 mmol/L (21.0-32.0); CREATININE 1.09 mg/dL (0.70-1.30); Calcium 8.8 mg/dL (8.5-10.1); Chloride 104 mmol/L (98-107); Glucose 151 mg/dL (74-106); Magnesium 2.1 mg/dL (1.8-2.4); Potassium 3.7 mmol/L (3.5-5.1); Sodium 137 mmol/L (136-145)
--- NOTE | 2020-07-25 11:25 | CMPROGNOTE_ITS ---
- If Service Date Differs Date of service: 07/25/20 Time of Service: 11:25 Care Management Progress Note S/O: Shahzad remains acute today, blood cultures did come back positive awaiting sensitivities. Concerns for endocarditis he will have an echo today. His WBC is higher today, he will be changed to inpatient admission. Clinical Coordinator is going to request his records from [facility]. CM us unsure the course of abx and length of treatment at this time. CM will continue to assess and coordinate discharge needs throughout Shahzad stay. A: Shahzad is a 79 year old mail admitted with fever found to have positive blood cultures. He continues to be ruled out for COVID and now concerns for possible endocarditis. P: Disposition to be determined anticipate home with no services, pending abx need and sensitivities. CM will continue to assess and coordinate. When Shahzad is ready to return home he will be transported via private car with family.
--- NOTE | 2020-07-25 12:34 | W.NUTRFU ---
Date of service: 07/25/20 Time of Service: 12:34 Nutritional Follow up NOTE: Pt is 79 year old male admitted with fever, possible endocarditis. PMH: CAD. Following gluten free diet with adequate intake to meet nutrient and fluid needs. BMI wnl for age. Not at nutritional risk at this time. will continue to follow. Time Spent in Nutritional Counseling and Treatment: 0
--- NOTE | 2020-07-25 16:50 | W.PM.PROGNOT ---
Date of Service Date of service: 07/25/20 Time of Service: 16:51 Assessment and Plan Assessment and plan (1) Gram negative sepsis: Status: Acute Assessment and plan: 1 bottle/4 Blood culture 06/23/2020: GNR and GPC. ?contaminant vs real. Blood cultures repeated today. Afebrile, clinically improved. Will await result of repeat blood cultures. Once speciation/sensitivities on the original blood cultures are known, will consult ID. Echo without evidence of endocarditis. (2) Pneumonia: Status: Acute Assessment and plan: Present on admission, Likely bacterial, and the patient describes prior pneumonias in the same location. responding to vancomycin/zosyn. Continue. (3) Hypoxemia: Status: Resolved Assessment and plan: Resolved. (4) Person under investigation for COVID-19: Status: Acute Assessment and plan: Will recheck COVID-19 on 07/27/2020. (5) GERD (gastroesophageal reflux disease): Status: Chronic Assessment and plan: Continue PPI (6) DVT prophylaxis: Status: Acute Assessment and plan: Lovenox (7) Discharge planning issues: Status: Acute Assessment and plan: Full code Disposition pending results of blood cultures. Subjective Subjective Interval history since last seen: Mr Ray reported heartburn last night. Otherwise, his muscle tightness in the back has resolved with a heating pad. He Has been afebrile, denies dizziness, chest pain, shortness of breath, cough, nausea, pains elsewhere. He is concerned that he missed his phlebotomy appointment (I explained to him that we are phlebatomizing him every time we draw blood). He gets phlebotomy as he get polycythemic with testosterone treatment. Exam Narrative Exam Narrative: General: Pleasant middle-aged male, appears younger than stated age, A&Ox3, looks well HEENT: EOMI, MMM Heart: RRR, no m/r/g Lungs: coarse breath sounds at B bases, better today Abdomen: soft, nontender, nondistended Extremities: no edema BLEs Objective Last Vital Signs Temp 36 C L 07/25/20 12:00 Pulse 65 07/25/20 12:00 Resp 18 07/25/20 12:00 BP 124/66 07/25/20 12:00 Pulse Ox 99 07/25/20 12:00 Laboratory Results - last 24 hr 07/25/20 07/25/20 08:18 08:18 WBC 18.56 H RBC 5.36 Hgb 16.7 Hct 48.8 MCV 91.0 MCH 31.2 MCHC 34.2 RDW 13.4 Plt Count 212 MPV 10.0 Immature Gran % 0.4 Neutrophils % 89.6 Lymphocytes % 3.3 Monocytes % 6.5 Eosinophils % 0.1 Basophils % 0.1 Nucleated RBC % 0 Absolute Neutrophils 16.63 H Absolute Lymphocytes 0.61 L Absolute Monocytes 1.21 H Absolute Eosinophils 0.02 Absolute Basophils 0.02 Sodium 137 Potassium 3.7 Chloride 104 Carbon Dioxide 24.7 Anion Gap 8.3 BUN 19 H Creatinine 1.09 Estimated GFR/1.73 m2 >= 60.00 Glucose 151 H Calcium 8.8 Magnesium 2.1 C-Reactive Protein 3.45 H Objective Narrative Objective Narrative: Echo: EF 60%, normal wall motion, mild aortic regurgitation, mild mitral regurgitation, no valvular vegetations
[2020-07-25] MEDS: Enoxaparin 40 MG/0.4 ML SYR SC (17:12)
[2020-07-25] MEDS: Atorvastatin 20 MG TAB PO (20:20)
[2020-07-26] MEDS: DOXYCYCLINE 100 MG in Normal Saline 100 ML IVPB ×2 (02:04→13:56)
[2020-07-26 02:58] VITALS: BP 129/75; PULSE 55; RESP 17; TEMP 36.6; O2SAT 96
[2020-07-26] MEDS: PIPERACILLIN/TAZO 3.375 GM in Normal Saline 50 ML IVPB ×4 (04:32→21:25)
[2020-07-26 07:08] LABS: Abs Immature Grans 0.04 10^3/uL (0.0-0.06); Absolute Lymphocyte Count 0.62 10^3/uL (1.2-3.4); Absolute Monocyte Count 1.24 10^3/uL (0.1-0.8); Absolute Neutrophil Count 10.93 10^3/uL (1.2-6.7); HCT 46.9 % (40.0-50.0); HGB 15.7 g/dL (13.5-17.5); Immature Grans % 0.3; Lymphocytes % 4.8; MCHC 33.5 % (32.0-36.0); MCV 92.7 fL (80-95); MPV 10.3 fL (8.0-11.0); Monocytes % 9.7; Neutrophils % 85.2; Nucleated RBC 0 %; Platelet Count 180 10^3/uL (130-400); RBC 5.06 10^6/uL (4.36-5.78); RDW 13.7 % (11.8-14.1); RDW-SD 46.5 fL; WBC 12.83 10^3/uL (4.4-10.8)
[2020-07-26 07:29] LABS: Anion Gap 6.6 mmol/L (3-11); BUN 22 mg/dL (7-18); C-Reactive Protein 1.55 mg/dL (0.0-0.3); CO2 25.4 mmol/L (21.0-32.0); CREATININE 1.17 mg/dL (0.70-1.30); Calcium 8.5 mg/dL (8.5-10.1); Chloride 107 mmol/L (98-107); Glucose 125 mg/dL (74-106); Magnesium 2.1 mg/dL (1.8-2.4); Sodium 139 mmol/L (136-145)
[2020-07-26 08:02] LABS: Procalcitonin 1.5 ng/mL
[2020-07-26] MEDS: Dexamethasone 4 MG TAB 6 MG PO (08:20)
[2020-07-26] MEDS: Aspirin 81 MG CHEW PO (08:20)
[2020-07-26] MEDS: Cetirizine 10 MG TAB PO (08:20)
[2020-07-26] MEDS: Pantoprazole 40 MG TABCR PO (08:20)
[2020-07-26] MEDS: amLODIPine 2.5 MG TAB PO (08:21)
[2020-07-26] MEDS: Losartan 50 MG TAB 100 MG PO (08:21)
[2020-07-26] MEDS: Sodium Chloride-Nasal SPRAY-ADULT 44 ML BTL NS ×2 (08:22→21:32)
[2020-07-26 08:25] VITALS: BP 109/61; PULSE 59; RESP 18; TEMP 35.8; O2SAT 99
[2020-07-26] MEDS: Normal Saline Flush 10 ML SYR IVP ×3 (09:14→21:25)
--- NOTE | 2020-07-26 09:45 | PDOC.CMPRO ---
- If Service Date Differs Date of service: 07/26/20 Time of Service: 09:46 Care Management Progress Note S/O: Shahzad continues on IV abx his WBC is improving. Shahzad was reviewed at interdisciplinary rounds no change in the discharge needs at this time. CM will continue to assess for discharge needs. Hospitalist will consult with Infectious disease to determine abx coverage prior to discharge. Anticipate oral abx at time of discharge. A: Shahzad is a 79 year old mail admitted with fever found to have positive blood cultures. He continues to be ruled out for COVID and now concerns for possible endocarditis. P: Disposition to be determined anticipate home with no services, pending abx need and sensitivities. CM will continue to assess and coordinate. When Shahzad is ready to return home he will be transported via private car with family.
[2020-07-26 12:35] VITALS: BP 107/50; PULSE 55; RESP 17; TEMP 36.3; O2SAT 100
[2020-07-26] MEDS: Omnipaque 350 MG/ML 100 ML BTL IJ (15:47)
[2020-07-26] MEDS: Normal Saline - Diluent 50 ML VIAL IV (15:49)
--- NOTE | 2020-07-26 15:55 | DI.CT_ITS ---
EXAM: CT ABDOMEN PELVIS W CLINICAL HISTORY: bacteremia, suspected GI source. TECHNIQUE: Imaging Protocol: Axial computed tomography images with coronal and sagittal reformatted images were created and reviewed CONTRAST MATERIAL: Intravenous: Omnipaque 350 Contrast volume:100cc Oral: no COMPARISON: No exams were available for comparison FINDINGS: ABDOMEN: Lung Bases: Minimal atelectasis. Liver: Mild fatty infiltration. No measurable mass. Gallbladder and biliary tract: Cholelithiasis, no abnormal gallbladder distention or wall thickening. Pancreas: Normal density, no abnormal calcifications or inflammatory process. Spleen: Normal. Kidneys: Normal size, contour and axis. No radiodense stones or obstructive uropathy. No masses seen. Simple cysts. Adrenal glands: No masses seen. Abdominal Aorta: Abdominal portion non-dilated. PELVIS: Bladder: Symmetric distention, no gross wall thickening. Bowel: Prominent diverticulosis descending and sigmoid colon.no obstruction or bowel wall thickening. Peritoneal cavity: No ascites, collection or mesenteric inflammatory response. Bones: Degenerative changes. Reproductive organs: Enlarged prostate. Lymph nodes: Unremarkable. Small fatty right inguinal hernia. Small fatty umbilical hernia. Impression: Diverticulosis. No evidence of diverticulitis or other acute abnormality. RADIATION DOSE DELIVERED: 1,016.27mGy.cm Total DLP DATA REPOSITORY: All CT scans at this facility are submitted to the National Radiology Data Registry (NRDR) Dose Index Registry (DIR) with the [employer] (A[employer]). RADIATION OPTIMIZATION: All CT scans at this facility use at least one of these dose optimization te chniques: automated exposure control; mA and/or kV adjustment per patient size (includes targeted exa ms where dose is matched to clinical indication); or iterative reconstruction.
[2020-07-26 15:56] VITALS: BP 131/60; PULSE 65; RESP 18; TEMP 36.8; O2SAT 100
--- NOTE | 2020-07-26 16:17 | DI.VRAD_ITS ---
PROCEDURE INFORMATION: Exam: CT Abdomen And Pelvis With Contrast Exam date and time: 07/26/2020 3:49 PM Age: 79 years old Clinical indication: Other: Bacteremia, suspected gi source TECHNIQUE: Imaging protocol: Computed tomography of the abdomen and pelvis with intravenous contrast. Radiation optimization: All CT scans at this facility use at least one of these dose optimization techniques: automated exposure control; mA and/or kV adjustment per patient size (includes targeted exams where dose is matched to clinical indication); or iterative reconstruction. Contrast material: OMNIPAQUE 350; Contrast volume: 100 ml; Contrast route: INTRAVENOUS (IV); COMPARISON: No relevant prior studies available. FINDINGS: Liver: Fatty infiltration liver. Gallbladder and bile ducts: Cholelithiasis. Pancreas: Normal. No ductal dilation. Spleen: Normal. No splenomegaly. Adrenal glands: Normal. No mass. Kidneys and ureters: Adjacent right renal cortical cysts. The largest cyst measures 11 mm. Superior left renal cortical cyst measuring 2.7 cm. Stomach and bowel: Sigmoid colon diverticulosis. Appendix: No evidence of appendicitis. Intraperitoneal space: No intraperitoneal air or fluid. Vasculature: Calcified coronary artery disease. Lymph nodes: Unremarkable. No enlarged lymph nodes. Urinary bladder: No urinary bladder calculi. Reproductive: Prostate enlargement with prostate calcifications. Prostate gland measures 5.7 x 4.5 cm. Bones/joints: Advanced disc degeneration at L2-L3. Moderate disc degeneration at L5-S1. Soft tissues: Fat containing right inguinal hernia. IMPRESSION: 1. Sigmoid colon diverticulosis. No evidence of diverticulitis. 2. Cholelithiasis. 3. Bilateral renal cortical cysts. 4. Fatty infiltration of the liver. 5. Prostate enlargement. Dictated and Authenticated by: Bhargav Barr MD. Ordering:LORE Castrejon MD
--- NOTE | 2020-07-26 16:54 | PGE_ITS ---
Date of Service Date of service: 07/26/20 Time of Service: 16:54 Assessment and Plan Assessment and plan (1) Gram negative sepsis: Status: Acute Assessment and plan: 3 bottle/4 Blood culture 06/23/2020: pseudomonas + E. Coli Blood cultures 07/25/2020: NGTD. Source: diverticular disease. Continues to improve clinically. Depending on sensitivities of pseudomonas, will likely discharge home on levaquin tomorrow. (2) Pneumonia: Status: Acute Assessment and plan: Present on admission, Likely bacterial, and the patient describes prior pneumonias in the same location. D/c vanco, continue zosyn. Plan to discharge home on levaquin. Clinically significantly better. (3) Hypoxemia: Status: Resolved Assessment and plan: Resolved. (4) Person under investigation for COVID-19: Status: Acute Assessment and plan: Will recheck COVID-19 on 07/27/2020. (5) GERD (gastroesophageal reflux disease): Status: Chronic Assessment and plan: Continue PPI (6) DVT prophylaxis: Status: Acute Assessment and plan: Lovenox (7) Discharge planning issues: Status: Acute Assessment and plan: Full code Likely discharge home tomorrow. Subjective Subjective Interval history since last seen: Feels better. States the diarrhea he had when he first presented has now slowed down. Denies dizziness, chest pain, shortness of breath, nausea, abdominal pain. Case discussed with [facility] ID: recommended CT abdomen/pelvis. This showed diverticulosis, which per ID can be the source of bacteremia. Exam Narrative Exam Narrative: General: Pleasant middle-aged male, appears younger than stated age, A&Ox3, looks well HEENT: EOMI, MMM Heart: RRR, no m/r/g Lungs: CTAB, much better Abdomen: soft, nontender, nondistended Extremities: no edema BLEs Objective Last Vital Signs Temp 36.8 C 07/26/20 15:56 Pulse 65 07/26/20 15:56 Resp 18 07/26/20 15:56 BP 131/60 07/26/20 15:56 Pulse Ox 100 07/26/20 15:56 Laboratory Results - last 24 hr 07/26/20 07/26/20 07/26/20 06:40 06:40 06:40 WBC 12.83 H D RBC 5.06 Hgb 15.7 Hct 46.9 MCV 92.7 MCH 31.0 MCHC 33.5 RDW 13.7 Plt Count 180 MPV 10.3 Immature Gran % 0.3 Neutrophils % 85.2 Lymphocytes % 4.8 Monocytes % 9.7 Eosinophils % 0.0 Basophils % 0.0 Nucleated RBC % 0 Absolute Neutrophils 10.93 H Absolute Lymphocytes 0.62 L Absolute Monocytes 1.24 H Absolute Eosinophils 0.00 Absolute Basophils 0.00 Sodium 139 Potassium 4.0 Chloride 107 Carbon Dioxide 25.4 Anion Gap 6.6 BUN 22 H Creatinine 1.17 Estimated GFR/1.73 m2 >= 60.00 Glucose 125 H Calcium 8.5 Magnesium 2.1 C-Reactive Protein 1.[address] abdomen/pelvis: 1. Sigmoid colon diverticulosis. No evidence of diverticulitis. 2. Cholelithiasis. 3. Bilateral renal cortical cysts. 4. Fatty infiltration of the liver. 5. Prostate enlargement.
[2020-07-26] MEDS: Enoxaparin 40 MG/0.4 ML SYR SC (18:34)
[2020-07-26] MEDS: Atorvastatin 20 MG TAB PO (21:25)
[2020-07-26 23:10] VITALS: BP 122/72; PULSE 58; RESP 17; TEMP 36.9; O2SAT 97
[2020-07-27] VITALS (13 sets, daily range): BP systolic 106–120; BP diastolic 52–75; PULSE 39–61; RESP 17–18; TEMP 36.2–37.1; O2SAT 95–99
[2020-07-27] MEDS: Normal Saline Flush 10 ML SYR IVP ×2 (03:37→22:00)
[2020-07-27] MEDS: PIPERACILLIN/TAZO 3.375 GM in Normal Saline 50 ML IVPB ×4 (03:37→22:03)
[2020-07-27] MEDS: Aspirin 81 MG CHEW PO (08:20)
[2020-07-27] MEDS: Pantoprazole 40 MG TABCR PO (08:20)
[2020-07-27] MEDS: Sodium Chloride-Nasal SPRAY-ADULT 44 ML BTL NS ×2 (08:20→20:10)
[2020-07-27] MEDS: Cetirizine 10 MG TAB PO (08:20)
[2020-07-27 08:43] LABS: Source Nasopharynx
[2020-07-27 08:48] LABS: Abs Immature Grans 0.04 10^3/uL (0.0-0.06); Absolute Lymphocyte Count 0.74 10^3/uL (1.2-3.4); Absolute Monocyte Count 0.82 10^3/uL (0.1-0.8); HCT 47.2 % (40.0-50.0); HGB 15.8 g/dL (13.5-17.5); Immature Grans % 0.5; Lymphocytes % 8.7; MCHC 33.5 % (32.0-36.0); MCV 92.7 fL (80-95); MPV 9.7 fL (8.0-11.0); Monocytes % 9.6; Neutrophils % 81.2; Nucleated RBC 0 %; Platelet Count 180 10^3/uL (130-400); RBC 5.09 10^6/uL (4.36-5.78); RDW 13.6 % (11.8-14.1); RDW-SD 46.8 fL
[2020-07-27 08:57] LABS: Anion Gap 6.9 mmol/L (3-11); BUN 26 mg/dL (7-18); C-Reactive Protein 0.87 mg/dL (0.0-0.3); CO2 25.1 mmol/L (21.0-32.0); CREATININE 1.12 mg/dL (0.70-1.30); Calcium 8.6 mg/dL (8.5-10.1); Chloride 108 mmol/L (98-107); Glucose 112 mg/dL (74-106); Magnesium 2.1 mg/dL (1.8-2.4); Potassium 4.1 mmol/L (3.5-5.1); Sodium 140 mmol/L (136-145)
[2020-07-27 09:16] LABS: COVID-19 PCR Negative (Negative); Influenza A PCR Negative (Negative); Influenza B PCR Negative (Negative); RSV PCR Negative (Negative)
[2020-07-27] MEDS: amLODIPine 2.5 MG TAB PO (09:27)
[2020-07-27] MEDS: Losartan 50 MG TAB 100 MG PO (09:27)
--- NOTE | 2020-07-27 11:15 | RT.EKG_ITS ---
APPROVED REPORT Exam: Resting ECG Patient Location: I HR:43 bpm ECG Measurements Heart Rate 43 AXIS NM 195 P 48 QRSd 97 QRS -5 QT 441 T 3 QTc 374 Conclusion Sinus bradycardia...rate< 60 Normal Electrocardiogram
[2020-07-27 12:02] LABS: Troponin I < 0.05 ng/mL (<0.06)
--- NOTE | 2020-07-27 16:25 | W.PM.PROGNOT ---
Date of Service Date of service: 07/27/20 Time of Service: 16:25 Assessment and Plan Assessment and plan (1) Gram negative sepsis: Status: Acute Assessment and plan: I have clarified with microbiology: it is 2, not 3/4 bottles positive for pseduomonas (07/23/2020), and only one of them is also positive for E. Coli. Sensitivities for pseudomonas will be available tomorrow morning. Blood cultures 07/25/2020: NGTD. Source: diverticular disease. Continues to improve on zosyn (day 3/14 of abx from the 1st negative blood culture) Depending on sensitivities of pseudomonas, can likely discharge home on levaquin tomorrow. (2) Bradycardia: Status: Acute Assessment and plan: New. Asymptomatic. D/c norvasc and continue to monitor on tele. EKG with SB, HR 43 while awake. Troponin negative. will continue to monitor on tele overnight. Does have a zio patch in his room (ordered by PCP) which he should wear on discharge. (3) Pneumonia: Status: Acute Assessment and plan: Present on admission, Likely bacterial, and the patient describes prior pneumonias in the same location. Continue zosyn. (Vanco d/c'ed). Plan to discharge home on levaquin. Clinically significantly better. (4) Hypoxemia: Status: Resolved Assessment and plan: Resolved. (5) Person under investigation for COVID-19: Status: Ruled-out Assessment and plan: Repeated COVID-19 testing today negative. Precautions discontinued. (6) GERD (gastroesophageal reflux disease): Status: Chronic Assessment and plan: Continue PPI (7) DVT prophylaxis: Status: Acute Assessment and plan: Lovenox (8) Discharge planning issues: Status: Acute Assessment and plan: Full code possible discharge home tomorrow with his zio patch. Subjective Subjective Interval history since last seen: HR went down to 40s overnight and has remained in low 40s-low 50s throughout the day today, even while awake and seemingly anxious. He is asympatomatic of it, not dizzy, not having chest pain or shortness of breath. The patient is concerned. He states that he does not normally get bradycardic. In the room with him is a zio patch that his PCP had arranged for, but he states that was not ordered for bradycardia. He states that norvasc is a relatively new drug for him (the last couple of weeks). We discussed that it is extremely rare for amlodipine to cause bradycardia, but not impossible, and that we will discontinue it and see how his heart rate responds. He feels more comfortable staying another night so that we can watch his heart rate. He did wear his CPAP last night. He states that his stools are now formed. We discussed how it is possible that amlodipine was not well absorbed previously because of diarrhea but now that his stools have formed, he might be seeing more of an effect from it. We also discussed that his heart rate may have been previously higher because of the infection, but that now that it is getting better treated, it is slowing down. Exam Narrative Exam Narrative: General: Pleasant middle-aged male, appears younger than stated age, A&Ox3, looks well, anxious HEENT: EOMI, MMM Heart: RRR, ?quiet ELICIA. His heart rate is 52 at the time of my exam. Lungs: CTAB Abdomen: soft, nontender, nondistended Extremities: no edema BLEs Objective Last Vital Signs Temp 37.1 C 07/27/20 15:45 Pulse 52 L 07/27/20 15:45 Resp 17 07/27/20 15:45 BP 109/52 L 07/27/20 15:45 Pulse Ox 96 07/27/20 15:45 Laboratory Results - last 24 hr 07/27/20 07/27/20 07/27/20 08:20 08:37 08:37 WBC 8.50 D RBC 5.09 Hgb 15.8 Hct 47.2 MCV 92.7 MCH 31.0 MCHC 33.5 RDW 13.6 Plt Count 180 MPV 9.7 Immature Gran % 0.5 Neutrophils % 81.2 Lymphocytes % 8.7 Monocytes % 9.6 Eosinophils % 0.0 Basophils % 0.0 Nucleated RBC % 0 Absolute Neutrophils 6.90 H Absolute Lymphocytes 0.74 L Absolute Monocytes 0.82 H Absolute Eosinophils 0.00 Absolute Basophils 0.00 Sodium 140 Potassium 4.1 Chloride 108 H Carbon Dioxide 25.1 Anion Gap 6.9 BUN 26 H Creatinine 1.12 Estimated GFR/1.73 m2 >= 60.00 Glucose 112 H Calcium 8.6 Magnesium 2.1 Troponin I < 0.05 C-Reactive Protein 0.87 H Vancomycin Trough COVID-19 Source Nasopharynx SARS-CoV-2 (PCR) Negative Influenza Type A (PCR) Negative Influenza Type B (PCR) Negative RSV (PCR) Negative 07/27/20 14:00 WBC RBC Hgb Hct MCV MCH MCHC RDW Plt Count MPV Immature Gran % Neutrophils % Lymphocytes % Monocytes % Eosinophils % Basophils % Nucleated RBC % Absolute Neutrophils Absolute Lymphocytes Absolute Monocytes Absolute Eosinophils Absolute Basophils Sodium Potassium Chloride Carbon Dioxide Anion Gap BUN Creatinine Estimated GFR/1.73 m2 Glucose Calcium Magnesium Troponin I C-Reactive Protein Vancomycin Trough Cancelled COVID-19 Source SARS-CoV-2 (PCR) Influenza Type A (PCR) Influenza Type B (PCR) RSV (PCR)
--- NOTE | 2020-07-27 16:47 | PDOC.CMPRO ---
- If Service Date Differs Date of service: 07/27/20 Time of Service: 16:47 Care Management Progress Note S/O: Shahzad was sitting up in bed when CM met with him. He was pleasant and agreeable to conversation. Shahzad shared that he hoped to be able to go home today if his blood culture senstivities were finalized.Shahzad continues on IV abx to treat the pseudomonas bacteremia. His WBC has normalized and he remains afebrile with stable vital signs. Hospitalist will consult with Infectious disease to determine abx coverage prior to discharge. Sensitivities of the pseudomonas will be ready tomorrow and will determine the course of his antibiotic treatment. Hopefully an oral agent will be adequate. A: Shahzad is a 79 year old man admitted on 07/25/20 with fever found to have positive blood cultures. P: Disposition to be determined. Anticipate Shahzad will go home with no services, pending abx need and sensitivities. CM will continue to support Shahzad and assess and coordinate discharge planning needs. When Shahzad is ready to return home he will be transported via private car with family.
[2020-07-27] MEDS: Enoxaparin 40 MG/0.4 ML SYR SC (18:02)
[2020-07-27] MEDS: Atorvastatin 20 MG TAB PO (20:09)
[2020-07-28 03:30] VITALS: BP 126/80; PULSE 52; RESP 16; TEMP 36.7; O2SAT 97
[2020-07-28] MEDS: Normal Saline Flush 10 ML SYR IVP ×2 (04:02→10:58)
[2020-07-28] MEDS: PIPERACILLIN/TAZO 3.375 GM in Normal Saline 50 ML IVPB ×2 (04:03→09:54)
[2020-07-28 07:04] VITALS: PULSE 48
[2020-07-28 07:25] VITALS: BP 148/67; PULSE 60; RESP 17; TEMP 36.7; O2SAT 96
[2020-07-28] MEDS: Aspirin 81 MG CHEW PO (07:45)
[2020-07-28] MEDS: Pantoprazole 40 MG TABCR PO (07:45)
[2020-07-28] MEDS: Losartan 50 MG TAB 100 MG PO (07:45)
[2020-07-28] MEDS: Sodium Chloride-Nasal SPRAY-ADULT 44 ML BTL NS (07:46)
[2020-07-28] MEDS: Cetirizine 10 MG TAB PO (07:46)
--- NOTE | 2020-07-28 09:32 | DSE_ITS ---
Date of service: 07/28/20 Time of Service: 09:33 DS: Diagnosis Discharge Diagnosis (1) Gram negative sepsis: Status: Acute Asessment and Plan: grew ecoli and pseudomonas, both sensitive to fluroquinolones. 2 nd set of blood cultures negative. will complete 2 weeks of antibiotics (2) Bradycardia: Status: Acute Asessment and Plan: asymptomatic. amlodipine discontinued. will need BP monitoring outpatient. resume ziopatch as previously directed (3) Pneumonia: Status: Acute Asessment and Plan: respiratory status stable. (4) Hypoxemia: Status: Resolved Asessment and Plan: oxygenating well on room air (5) Person under investigation for COVID-19: Status: Ruled-out Asessment and Plan: covid 19, negative (6) GERD (gastroesophageal reflux disease): Status: Chronic Discharge Plan Disposition Patient Disposition: HOME Condition: Good Discharge Details Reason For Visit: FEVER Admit Date/Time: 07/25/20 08:10 Admit Provider: Richi Fitch Attending Provider: Richi Fitch Primary Care Provider: Charissa Mendez Hospital Course Hospital Course: This is a 79 year old male with history of bradycardia, GERD, HTN who presented to the ED for fever of one day with max temp of 103 at home. There was no clear source of his infection but he had recently traveled to [facility] so a rapid covid was obtained that was negative. He was hemodynamically stable with no c/o other than fever. Blood cultures obtained and he was started on broad spectrum antibiotics. He grew ecoli and pseudomonas in his blood, repeat blood cultures negative at 48 hours. He will be downstepped to levaquin based on sensitivities and will be discharged home to complete a 14 day course. He had been wearing a ziopatch prior to arrival, that was resumed at discharge. His amlodipine was placed on hold for bradycardia, although not typical it was trialed. he will monitor his vitals outpatient and report to pcp. He is eating and drinking well, bowels and bladder functioning well. He is afebrile oxygenating well on room air. He is stable for discharge to home. prescription called to [facility] in [place]. ziopatch applied. will follow up outpatient with pcp. discussed with DR Jackson Home Meds and New Rx's Prescriptions: New levofloxacin 750 mg tablet 750 mg PO DAILY Qty: 10 RF: 0 Continued aspirin 81 MG tablet,chewable 81 mg PO DAILY RF: 0 albuterol sulfate [ProAir HFA] 8.5 GM HFA aerosol inhaler 1 - 2 puff Inhalation Q6H PRN RF: 0 multivitamin [Daily Value] 1 EACH tablet 1 ea PO DAILY RF: 0 ascorbic acid (vitamin C) [Vitamin C] 1,000 MG tablet 1,000 mg PO DAILY RF: 0 coenzyme Q10 50 MG capsule 100 mg PO DAILY RF: 0 niacinamide [Niacin (niacinamide)] 500 MG tablet 500 mg PO DAILY RF: 0 cetirizine 10 MG tablet,chewable 10 mg PO DAILY RF: 0 omega-3 fatty acids-fish oil 1 EACH capsule 1 ea PO DAILY RF: 0 cpap aerosol RF: 0 testosterone RF: 0 doxycycline hyclate [Doryx] 100 MG tablet,delayed release (DR/EC) 100 mg PO BID Qty: 20 RF: 0 atorvastatin 20 mg tablet 20 mg PO DAILY RF: 0 ferrous sulfate 325 mg (65 mg iron) tablet 325 mg PO DAILY RF: 0 losartan 100 mg tablet 100 mg PO DAILY RF: 0 loratadine 10 mg Tablet 10 mg PO DAILY RF: 0 hydrochlorothiazide 25 mg tablet 25 mg PO DAILY RF: 0 azelastine 137 mcg (0.1 %) aerosol,spray 2 spray INTRANASAL BID RF: 0 Caverject Impulse 20 mcg kit 20 mcg INTRA-CAVERNOSAL Q48H PRNRF: 0 fluticasone propionate 50 mcg/actuation spray,suspension 2 spray INTRANASAL DAILY RF: 0 Discontinued amlodipine 2.5 mg tablet 2.5 mg PO DAILY RF: 0 Discharge Instructions Instructions: Bacteremia (DC) Additional Instructions: finish your antibiotics as directed, even if you feel better. A prescription has been sent to [facility] in [place] hold your amlodipine for bradycardia, monitor your pulse and blood pressure 3 times weekly, record and bring to your follow up appointment. wear your ziopatch as previously advised. return to ED immediately for new or worsening symptoms Stand Alone Forms: Nursing Discharge Form Referrals: Charissa Mendez [Primary Care Provider] - (Please call Thursday to make a follow up appointment for 1-2 weeks.) Activity:: Activity as Tolerated Equipment/Supplies:: No Equipment Needed Diet:: As Tolerated Discharge Orders Discharge Orders: Discharge Order (Routine); Ordered 07/28/20 Ordered By: Jenny Mcclelland DS: Summary Status at Discharge Functional status at discharge: independent ambulation Overall status at discharge: patient is progressing back to baseline Mental Status: mental status grossly normal Speech and Movement: speech and movement normal Mood: congruent mood Affect: normal affect Exam Narrative Exam Narrative: General: pink warm dry in no acute distress, appears younger than stated age, A&Ox3 HEENT: atraumatic normocephalic, EOMI, MMM Heart: RRR, Lungs: respirations even and unlabored Abdomen: soft, nontender, nondistended Extremities: no edema BLEs Psych Mental Status: mental status grossly normal Speech and Movement: speech and movement normal Mood: congruent mood Affect: normal affect DS: Data Vitals/I&O Vitals and I&O: Vital Signs Temperature 36.7 C 07/28/20 07:25 Temperature Source Temporal Artery Scan 07/28/20 07:25 Pulse 60 07/28/20 07:25 Pulse Rhythm Regular 07/28/20 07:29 Respiratory Rate 17 07/28/20 07:25 Respiratory Effort Non-Labored 07/28/20 07:29 Respiratory Depth Normal 07/28/20 07:29 Respiratory Pattern Normal 07/28/20 07:29 Blood Pressure 148/67 H 07/28/20 07:25 Blood Pressure Position Sitting 07/23/20 23:03 Pulse Oximetry 96 07/28/20 07:25 Oxygen Delivery Method Room Air 07/28/20 07:25 Oxygen Flow Rate 0 07/28/20 07:25 Fraction of Inspired Oxygen (FIO2) 21 07/26/20 09:58 Pain Level 0 07/28/20 07:29 Comment 07/28/20 07:29 Intake & Output 07/27/20 07/27/20 07/28/20 11:59 23:59 11:59 Intake Total 520 / 1530 1010 / 1530 1050 / 1050 Output Total 700 / 1700 1000 / 1700 800 / 800 Balance -180 / -170 10 / -170 250 / 250 Intake: IV 170 / 280 110 / 280 50 / 50 Oral 350 / 1250 900 / 1250 1000 / 1000 Output: Urine 700 / 1700 1000 / 1700 800 / 800 Other: Urine Color Yellow Straw Straw Urine Appearance Clear Clear Clear Urine Odor Normal Normal Comment Void x1 in the toilet. Stool Size Moderate Stool Characteristics Formed Brown Voiding Methods Toilet Toilet Toilet Data Completed and Pending Labs on day of discharge: Labs from last 24 hours 07/27/20 08:37 Troponin I < 0.05 Preliminary micro results at discharge 07/23/20 23:45 Blood Culture - Preliminary Blood Escherichia coli Pseudomonas aeruginosa 07/23/20 23:35 Blood Culture - Preliminary Blood Pseudomonas aeruginosa 07/25/20 08:02 Blood Culture - Preliminary Blood NO GROWTH 48 HOURS 07/25/20 08:18 Blood Culture - Preliminary Blood NO GROWTH 48 HOURS [facility] Medical History (Updated 07/27/20 @ 16:34 by Lucía Morrell MD) Asthma HTN (hypertension) Tubular adenoma of colon (12/04/17) Surgical History Colonoscopy - MAC (12/04/17) Family History Father Colon cancer Social History Smoking/Tobacco Use Status: Former Tobacco Use Smoking risk assessment performed?: Yes Alcohol Intake: current Alcohol Intake frequency: 0-2 drinks per day Alcohol type: wine Drug use: Never Substance use type: does not use Do you feel safe at home: Yes Do you feel safe in your relationship?: Yes
[2020-07-28] MEDS: Normal Saline 500 ML 100 ML IV (09:53)
[2020-07-28 10:16] VITALS: PULSE 52
--- NOTE | 2020-07-28 17:28 | PDOC.CMDIS ---
- If Service Date Differs Date of service: 07/28/20 Time of Service: 17:28 LACE Index Scoring Tool - Questions: Length of Stay (in days): 3 Acuity (Admit via E.D.?): Yes E.D. Visits: 1 - Answers: Total Score: 7 Risk of Readmission: Low Risk Care Management Discharge Reason for Hospitalization: Fever Discharge Plan: Shahzad will go home with no new services and he will be transported via private car with family. Shahzad will follow up with his PCP and other providers and plan of care. Patient/Family Education Needs: Discharge plan, limitations, follow up, Ask Me Three
== END 2020-07-28 12:22 | disposition home or self-care (01) | DRG 871 ==
LOC: ER 07-24 01:51 → MS 07-24 02:29
PROVIDERS: Internal Medicine; Admitting Provider General Practice; Emergency Provider Student in an Organized Health Care Education/Training Program; PCP Internal Medicine; Visit Provider General Practice
DX: A41.50 Gram-negative sepsis, unspecified (principal); J15.9 Unspecified bacterial pneumonia; R00.1 Bradycardia, unspecified; R09.02 Hypoxemia; K21.9 Gastro-esophageal reflux disease without esophagitis; I10 Essential (primary) hypertension; B96.20 Unspecified Escherichia coli [E. coli] as the cause of diseases classified elsewhere; B96.5 Pseudomonas (aeruginosa) (mallei) (pseudomallei) as the cause of diseases classified elsewhere; J45.909 Unspecified asthma, uncomplicated
CPT/HCPCS: 36410; 36415; 71275; 80048; 80053; 82805; 84145; 85027; 87040; 87077; 87449; 87637; 93005; 94640; 96361; 96365; 96366; 96368; 96375; 99222; 99232; 99233; 99239; 99285; J1650; NC; U0003; 74177; 80202; 81003; 81015; 82728; 83605; 83615; 83735; 84484; 85025; 85379; 86140; 87186; 93010; 93306; 99219; G0378; J1100; J2543; J3480; J3490; J7620; J8540

== ENCOUNTER 2020-08-16 01:17 | Outpatient (CLI) | payer OTHER, SELFPAY ==
--- NOTE | 2020-08-16 | DI.US_ITS ---
EXAM: US UPPER EXTREMITY VENOUS RT CLINICAL HISTORY: FIRM RAISED AREA RUE ALONG VEIN, PAIN, ? BLOOD CLOT,H/O IV'S TECHNIQUE: Ultrasound performed using standard protocol. COMPARISON: US US ECHOCARDIOGRAM from 07/25/2020 FINDINGS: Duplex venous ultrasound of the right upper extremity was performed according to the usual protocol. There is no evidence of deep venous thrombosis. Note is made of superficial vein thrombus in a right cephalic vein as clinically suspected. This ext ends from distal to mid forearm. IMPRESSION: No evidence of deep venous thrombosis. DATA REPOSITORY:
== END 2020-08-16 01:37 ==
PROVIDERS: PCP Internal Medicine; Visit Provider Internal Medicine
DX: M79.89 Other specified soft tissue disorders (principal); M79.601 Pain in right arm
CPT/HCPCS: 93971

== ENCOUNTER 2020-09-05 12:00 | Outpatient (REF) | payer OTHER, SELFPAY | END 2020-09-05 12:01 | disposition home or self-care (01) | LOC: LBN 12:00 | PROVIDERS: PCP Internal Medicine; Visit Provider Internal Medicine | DX: R78.81 Bacteremia (principal) | CPT/HCPCS: 87177 ==

== ENCOUNTER 2020-10-31 02:34 | Outpatient (CLI) | payer OTHER, SELFPAY ==
[2020-10-31 10:42] LABS: Source Nasal/Nares
[2020-10-31 14:53] LABS: COVID-19 PCR Negative (Negative)
== END 2020-10-31 02:35 | disposition home or self-care (01) ==
LOC: LBO 02:34
PROVIDERS: Surgery; PCP Internal Medicine; Visit Provider Dermatology
DX: Z20.822 Contact with and (suspected) exposure to COVID-19 (principal); Z01.818 Encounter for other preprocedural examination
CPT/HCPCS: 87635

== ENCOUNTER 2020-11-02 09:00 | Day surgery (SDC) | payer OTHER, SELFPAY ==
[2020-11-02 09:10] VITALS: BP 130/69; PULSE 67; RESP 18; TEMP 36.6; O2SAT 94
[2020-11-02] MEDS: Lactated Ringers 1,000 ML 80 ML IV (09:13)
--- NOTE | 2020-11-02 10:24 | W.PM.DSUDISC ---
Discharge Plan Disposition Patient Disposition: HOME Condition: Good Discharge Details Reason For Visit: colon scope Attending Provider: Cecily Prince Primary Care Provider: Charissa Mendez Home Meds and New Rx's Prescriptions: Continued cyclobenzaprine 15 mg capsule,extended release 24hr 15 mg PO QHS PRNRF: 0 aspirin 81 MG tablet,chewable 81 mg PO DAILY RF: 0 albuterol sulfate [ProAir HFA] 8.5 GM HFA aerosol inhaler 1 - 2 puff Inhalation Q6H PRN RF: 0 multivitamin [Daily Value] 1 EACH tablet 1 ea PO DAILY RF: 0 ascorbic acid (vitamin C) [Vitamin C] 1,000 MG tablet 1,000 mg PO DAILY RF: 0 coenzyme Q10 50 MG capsule 100 mg PO DAILY RF: 0 niacinamide [Niacin (niacinamide)] 500 MG tablet 500 mg PO DAILY RF: 0 omega-3 fatty acids-fish oil 1 EACH capsule 1 ea PO DAILY RF: 0 cpap aerosol RF: 0 testosterone RF: 0 amlodipine 2.5 mg tablet 2.5 mg PO DAILY RF: 0 atorvastatin 20 mg tablet 20 mg PO DAILY RF: 0 ferrous sulfate 325 mg (65 mg iron) tablet 325 mg PO DAILY RF: 0 losartan 100 mg tablet 100 mg PO DAILY RF: 0 loratadine 10 mg Tablet 10 mg PO DAILY RF: 0 hydrochlorothiazide 25 mg tablet 25 mg PO DAILY RF: 0 azelastine 137 mcg (0.1 %) aerosol,spray 2 spray INTRANASAL BID RF: 0 Caverject Impulse 20 mcg kit 20 mcg INTRA-CAVERNOSAL QWEEK PRNRF: 0 fluticasone propionate 50 mcg/actuation spray,suspension 2 spray INTRANASAL DAILY RF: 0 Discontinued polyethylene glycol 3350 17 gram/dose powder 238 g PO ONCE Qty: 238 RF: 0 bisacodyl [Dulcolax (bisacodyl)] 5 mg tablet,delayed release (DR/EC) 5 mg PO ONCE Qty: 4 RF: 0 Discharge Instructions Additional Instructions: Findings:Moderate diverticular Dx. No signs of infection or inflammation. Otherwise, the colon was normal. No polyps today. Follow up: Random Biopsy's were taken, I will send a letter in 2-3 wks w/ the results. Please call if you develop: fevers >101.5 Nausea or Vomiting Abdominal pain that is not transient DAY SURGERY UNIT POST COLONOSCOPY INSTRUCTIONS 1. Because there will be medication in your system for the next 24 hours, you may feel a little sleepy. Your coordination will be affected. Therefore: a. Do not drive or operate dangerous equipment for 24 hours. b. Do not drink alcohol beverages for 24 hours (not even beer). c. Plan to go home and rest for the day. 2. Generally there are no restrictions on your activity after a day or so has gone by, but you may feel a bit fatigued for a few days. 3 After you arrive home you may have a light meal and return to a normal diet as you can tolerate it without feeling sick to your stomach. 4. After surgery, you may feel pain or discomfort. This should be only transient, but if it persists please contact your doctor. 5. If there are any questions regarding the findings of your procedure, please feel free to contact your doctor. 6. If you are unable to contact your doctor with a problem, contact the hospital at [phone]. 7. Continue all your regular medications unless directed otherwise. I understand the above instructions and have no questions. Signature of Patient or Responsible Adult Escort Date/Time Name of Responsible Adult Escort Signature of Nurse Date/Time DIVERTICULAR DISEASE OVERVIEW ? A diverticulum is a pouch-like structure that can form through points of weakness in the muscular wall of the colon (ie, at points where blood vessels pass through the wall). Diverticulosis affects men and women equally. The risk of diverticular disease increases with age. It occurs throughout the world but is seen more commonly in developed countries. WHAT IS DIVERTICULAR DISEASE? Diverticulosis ? Diverticulosis merely describes the presence of diverticula. Diverticulosis is often found during a test done for other reasons, such as flexible sigmoidoscopy, colonoscopy, or barium enema. Most people with diverticulosis have no symptoms and will remain symptom free for the rest of their lives. A person with diverticulosis may have diverticulitis, or diverticular bleeding. Diverticulitis ? Inflammation of a diverticulum (diverticulitis) occurs when there is thinning and breakdown of the diverticular wall. This may be caused by increased pressure within the colon or by hardened particles of stool, which can become lodged within the diverticulum. The symptoms of diverticulitis depend upon the degree of inflammation present. The most common symptom is pain in the left lower abdomen. Other symptoms can include nausea and vomiting, constipation, diarrhea, and urinary symptoms such as pain or burning when urinating or the frequent need to urinate. Diverticulitis is divided into simple and complicated forms. ?Simple diverticulitis, which accounts for 75 percent of cases, is not associated with complications and typically responds to medical treatment without surgery. ?Complicated diverticulitis occurs in 25 percent of cases and usually requires surgery. Complications associated with diverticulitis can include the following: ?Abscess ? a localized collection of pus ?Fistula ? an abnormal tract between two areas that are not normally connected (eg, bowel and bladder) ?Obstruction ? a blockage of the colon ?Peritonitis ? infection involving the space around the abdominal organ ?Sepsis ? overwhelming body-wide infection that can lead to failure of multiple organs Diverticular bleeding ? Diverticular bleeding occurs when a small artery located within a diverticulum is eroded and bleeds into the colon. Diverticular bleeding usually causes painless bleeding from the rectum. In approximately 50 percent of cases, the person will see maroon or bright red blood with bowel movements. Is bleeding with a bowel movement normal? ? It is not normal to see blood in a bowel movement; this can be a sign of several conditions, most of which are not serious (eg, hemorrhoids) but some of which are serious and require immediate treatment. Anyone who sees blood after a bowel movement should consult with their healthcare provider to determine if further testing or evaluation is needed. DIVERTICULOSIS AND DIVERTICULITIS DIAGNOSIS ? Diverticulosis is often found during tests performed for other reasons. ?Barium enema ? This is an x-ray study that uses barium in an enema to view the outline of the lower intestinal tract. This is an older test and has been largely replaced by computed tomography (CT) scan. ?Flexible sigmoidoscopy ? This is an examination of the inside of the sigmoid colon with a thin, flexible tube that contains a camera. ?Colonoscopy ? This is an examination of the inside of the entire colon. ?CT scan ? A CT scan is often used to diagnose diverticulitis and its complications. If diverticulitis (not just diverticulosis) is suspected, the above three tests should not be used because of the risk of perforation. TREATMENT Diverticulosis ? People with diverticulosis who do not have symptoms do not require treatment. However, most clinicians recommend increasing fiber in the diet, which can help to bulk the stools and possibly prevent the development of new diverticula, diverticulitis, or diverticular bleeding. Fiber is not proven to prevent these conditions in all patients but may help to control recurrent episodes in some. Increase fiber ? Fruits and vegetables are a good source of fiber. Fiber content of packaged foods can be calculated by reading the nutrition label. Seeds and nuts ? Patients with diverticular disease have historically been advised to avoid whole pieces of fiber (such as seeds, corn, and nuts) because of concern that these foods could cause an episode of diverticulitis. However, this belief is completely unproven. We do not suggest that patients with diverticulosis avoid seeds, corn, or nuts. Diverticulitis ? Treatment of diverticulitis depends upon how severe your symptoms are. Home treatment ? If you have mild symptoms of diverticulitis (mild abdominal pain, usually left lower abdomen), you can be treated at home with a clear liquid diet and oral antibiotics. However, if you develop one or more of the following signs or symptoms, you should seek immediate medical attention: ?Temperature >100.1?F (38?C) ?Worsening or severe abdominal pain ?An inability to tolerate fluids Hospital treatment ? If you have moderate to severe symptoms, you may be hospitalized for treatment. During this time, you are not allowed to eat or drink; antibiotics and fluids are given into a vein. If you develop an abscess of the colon, you may require drainage of the abscess (usually performed by placing a drainage tube across the abdominal wall) or by surgically opening the affected area. Surgery ? If you develop a generalized infection in the abdomen (peritonitis), you will usually require an emergency operation. A two-part operation may be necessary in some cases. ?The first operation involves removal of the diseased colon and creation of a colostomy. A colostomy is an opening between the colon and the skin, where a bag is attached to collect waste from the intestine. The lower end of the colon is temporarily sewed closed to allow it to heal. ?Approximately three to six months later, a second operation is performed to reconnect the two parts of the colon and close the opening in the skin. You are then able to empty your bowels through the rectum. Sometimes patients require up to a year to recover from the first operation, depending on how sick they were. In non-emergency situations, the diseased area of the colon can be removed and the two ends of the colon can be reconnected in one operation, without the need for a colostomy. Surgery versus medical therapy ? An operation to remove the diseased area of the colon may be necessary if you do not improve with medical therapy. After an episode of uncomplicated diverticulitis, elective surgery is generally not required as the risk of another attack or requiring emergency surgery is low. However, patients with persistent symptoms attributable to diverticulitis, a history of complicated diverticulitis, or a compromised immune system should be evaluated for possible surgery to prevent another attack. In such patients, another attack has been associated with a higher risk of complications or . Of course, the decision will also depend in part upon your other medical conditions and ability to undergo surgery. In many cases, an elective operation can be performed laparoscopically, using small incisions, rather than the typical vertical (up and down) abdominal incision. Laparoscopic surgery usually allows you to recover more quickly and shortens the hospital stay. After diverticulitis resolves ? After an episode of diverticulitis resolves, if you have not had a recent colonoscopy, the entire length of the colon should be evaluated to determine the extent of disease and to rule out the presence of abnormal lesions such as polyps or cancer. Recommended tests include colonoscopy, barium enema and sigmoidoscopy, or CT colonography. Diverticular bleeding ? Most cases of diverticular bleeding resolve on their own. However, some people will need further testing or treatment to stop bleeding, which may include a colonoscopy, angiography (a treatment that blocks off the bleeding artery), bleeding scan, or surgery. DIVERTICULAR DISEASE PROGNOSIS Diverticulosis ? Over time, diverticulosis may cause no problems or it may cause episodes of bleeding and/or diverticulitis. Approximately 15 to 25 percent of people with diverticulosis will develop diverticulitis, while 5 to 15 percent will develop diverticular bleeding. Diverticulitis ? Approximately 85 percent of people with uncomplicated diverticulitis will respond to medical treatment, while approximately 15 percent of patients will need an operation. After successful treatment for a first attack of diverticulitis, one-third of patients will remain asymptomatic, one-third will have episodic cramps without diverticulitis, and one-third will go on to have a second attack of diverticulitis. The prognosis tends to remain similar following a second attack of diverticulitis. Only 10 percent of people remain symptom-free after a second attack. Subsequent attacks tend to be of similar severity, not increasing in severity as previously believed. High Fiber Diet What is Dietary Fiber? All fiber comes from plants, bushes, maxine or trees. Of course, the ones that we eat provide us with fruits, vegetables and grains. There are many different types of fiber but the three that are most important to the health of the body are: Insoluble Fiber This fiber does not dissolve in water, nor is it fermented by the bacteria residing in the colon. Rather, it retains water and in so doing, helps to promote a larger, bulkier and more regular bowel activity. This, in turn, may be important in preventing disorder such as diverticulosis and hemorrhoids, and in sweeping out certain toxins and cancer causing carcinogens. Sources of insoluble fiber are: ? whole grain wheat and other whole grains ? corn bran, including popcorn, unflavored and unsweetened ? nuts and seeds ? potatoes and the skins from most fruits from trees such as apples, bananas and avocados ? many green vegetables such as green beans, zucchini, celery and cauliflower ? some fruit plants such as tomatoes and kiwi Soluble Fiber These fibers are fermented or used by the colon bacteria as a food source or nourishment. When these good bacteria grow and thrive, many health benefits occur in both the colon and the body. Soluble fiber is present in some degree in most edible plant foods, but the ones with the most soluble fiber include: ? legumes such as peas and most beans, including soybeans ? oats, rye and barley ? many fruits such as berries, plums, apples bananas and pears ? certain vegetables such as broccoli and carrots ? most root vegetables ? psyllium husk supplement products Prebiotic Soluble Fiber These are relatively newly discovered soluble plant fibers. The technical name for this fiber is inulin or fructan. When these soluble fibers are fermented by the good colon bacteria, some further significant health benefits have been shown to occur by research in many medical centers. These soluble prebiotic fibers occur in significant amounts in: ? asparagus ? yams ? onions ? garlic ? bananas ? leeks ? agave ? chicory and other root vegetables such as [place] artichokes ? wheat, rye and barley (smaller amounts) Benefits of a High Fiber Diet The health benefits of a high fiber diet, consumed on a regular basis and reaching recommended amounts (below), are now fairly well-defined. There are some additional benefits in the early research stage with the prebiotic soluble fibers. What is now known regarding a high fiber diet include: Bowel Regularity A high fiber diet promotes regularity with a softer, bulkier and regular stool pattern. This decreases the chance of hemorrhoids, diverticulosis and perhaps colon cancer. Cholesterol and Reduced Triglycerides The soluble fibers are the ones that will reduce cholesterol levels when used on a regular basis. Psyllium husk and prebiotic soluble fiber will also reduce cholesterol. They may also reduce the incidence of coronary heart disease. Oats, flax seeds and legumes or beans are the recommended fibers. Colon Polyps and Cancer It is still not certain if a high fiber diet helps prevent colon cancer. Considerable research suggests that this may occur. Certainly it makes sense to increase regularity and so speed the movement of cancer causing carcinogens through the bowel. In addition, reducing a heavy meat diet reduces the bile flow from the liver in a favorable way. This, too, reduces the amount of carcinogens that reach and are manufactured in the colon. Finally, a high fiber diet, including prebiotic soluble fiber, increases the integrity and health of the wall of the colon. The risk of cancer may be reduced. Colon Wall Integrity A high fiber diet changes the bacterial makeup of the colon toward a more favorable balance. For instance, it is known that those people with obesity, diabetes type 2 and inflammatory bowel disease have a predominance of bad bacteria in the colon. This, in turn, may render the bowel wall weak and allow bacteria and, indeed, even toxins to seep through. A high fiber diet with a modest reduction in animal and meat products may return the bacterial makeup to a more positive balance. This, in particular, has been seen when the soluble fiber prebiotics are added to the diet. Blood Sugar Soluble fiber such as in legumes (beans), oats and in prebiotic fibers slows the absorption of blood sugar and so helps regulate the sugar in the blood. Insoluble fiber on a regular basis is associated with reduced risk of type 2 diabetes. Weight Loss High fiber diets are more filling and give a sense of fullness sooner than an animal and meat based diet does. In addition, the soluble prebiotic fibers have been shown to turn off the hunger hormones produced in the wall of the gut and to increase the hormones that give a sense of fullness. Those hormones are made in the wall of the gut. New medical research has shown that the bacterial makeup in the colon in overweight people is abnormal to the extent that they manufacture and absorb almost twice the number of calories through the colon wall as do normals. Prebiotic fibers (below) will help change this hormonal balancein a favorable way. Bacteria and the Function of the Colon The colon finishes the digestive process. Hopefully, the waste products move through in a nice regular manner. Insoluble fibers help this process by retaining water and so producing a bulkier, softer stool, which is easy to pass. The additional role of the colon is to provide a home for an enormous number of micro-organisms, mostly bacteria. Recent research has shown that there are over 1,000 species of bacteria with a total bacterial count ten times the number of cells in the body. These bacteria play a major role in keeping the colon wall itself healthy. In addition, these good bacteria produce a very strong immune system for the body. They significantly increase calcium absorption and bone density. They provide other documented benefits. It is the soluble fibers in the diet that are so effective in stimulating the growth of good colon bacteria. How Much is Enough? The amount of fiber in food is measured in grams. National nutritional authorities recommend the following amounts of dietary fiber daily. Under Age 50 Over Age 50 Men 38 grams 30 grams Women 25 grams 21 grams For a week or so, it is best to tally the amount of fiber you are consuming. Boxed and packaged foods will have the amount of fiber per serving on the nutrition label. Which Fibers and Which Foods are Best? As noted, healthy fiber is only found in plants. The three major categories are whole grains, fruits and vegetables. Whole Grains Wheat, oats, barley, wild or brown rice, amaranth, buckwheat, bulgur, corn, millet, quinoa, rye, sorghum, teff and triticals. By far, wheat, oats and wild or brown rice are most common. Always buy whole grain products. White bread, baked goods and rolls almost always are made from wheat flour. Wheat flour is white because most of the fiber, vitamins and other nutrients have been removed. Try not buy enriched grains. What this means is that simple white flour has had vitamins added to it by the outside installation machinist. The word, enriched, implies a good and healthy product. On the contrary, enriched means that most of the fiber has been removed and a few vitamins added. Fruits Fruits come from trees such as apple and pear or from bushes or maxine. You should eat a wide variety of fruits, preferably with every meal. In many cases, the skin of a fruit such as apple will contain much of the insoluble fiber while the pulp contains most of the soluble fiber. To the extent possible, buy organic fruits as these will have little or no pesticides. Always wash fruit. Vegetables Eat a wide variety of vegetables. They should be a mainstay of lunch and dinners. Frozen vegetables retain as much nutrition and fiber as fresh vegetables. As with fruit, try to buy organic to reduce any residual pesticide ingestion. Wash fresh vegetables thoroughly. Cruciferous vegetables such as broccoli, [place] sprouts and cauliflower contain certain chemicals such as sulforaphane. This substance has very strong anti-cancer properties and should be eaten frequently. Legumes, Beans, Peas and Soybeans These vegetables have plenty of soluble fiber and should be part of a varied vegetable intake. Beans, in particular, contain a certain type of fiber that may lead to harmless gas or bloating. Nuts and Seeds These are rich sources of fiber and are a good substitute for sweets such as candies and baked sweet goods. While nuts and seeds are rich in fiber, they also contain vegetable fat and so can and do add calories. Read the Labels As noted, fresh and frozen foods are usually better. They have good nutrition and few, if any, chemicals added to them. When buying packaged foods and, in particular grains, look for three things: ? The first word on the label should be whole, such as whole wheat or whole grain. ? Check out the calories and the amount of fiber in a serving. ? How many and what other additives or chemicals are added. Fewer is always better. Do you know what each additive does? Some are added not for the benefit of the entry level buyer but rather for manufacturers. These could and do include sugar, artificial flavor, chemicals to prevent oxidation and spoilage, emulsifiers to blend the product. You have to be a medical office clerk. Fiber Facts, Nuggets and Pearls ? For breakfast you can easily get the day started well by using a high fiber, whole grain cereal. Check the labels. Add fruit such as blueberries and bananas. If you are an egg eater, use whole wheat or grain toast. Adding wheat germ gives you a good fiber kick. ? Always use whole grain or wheat with rolls and sandwiches. Does your fast food store not have them? Perhaps you look elsewhere. Eating an occasional black estrada or veggie burger provides variety. ? Snacks should consist of fruit and/or nuts. While nuts are loaded with fiber, they are an energy rich food, meaning they have a lot of calories in a small packet. ? Fruit juices should contain pulp. Clear juices such as clear orange, pear or apple juice contain little fiber and have a lot of fructose. Prune juice is usually high in fiber. ? Homemade soups ? adding fresh or frozen vegetables to a chicken or vegetable stock is a good way to start homemade soup. ? Salads ? adding cooked and then chilled vegetables provide great flavoring to almost any salad. Remember, a knapp salad has lots of cooked corn in it. Small slices of apples or oranges and nuts such as chopped walnuts or sliced almonds always adds taste, variety and fiber to almost any salad. ? Fruit ? Try to eat fruit of some type with almost every meal. ? Rethink how you place the various foods on your dinner plate. Reducing the portions of the meat or animal food portion to the side with equal or more portions of vegetables, legumes and fruits portion always allows for more fiber. There was never anything magic about making the meat or animal food portion the main part of the dinner plate. Eating from smaller plates can, over time, trick your mind and intermediate habit of using a dinner plate. Again, there is nothing magic in an 11, 12, or 13 inch dinner plate. Fiber Supplements There are a variety of fiber supplements available on the food or pharmacy shelves. Psyllium This soluble plant fiber has been used in [place] for over 2,000 years. It is a soluble fiber with mucilage in it. This acts to retain a lot of water and also is fermented by colon bacteria. When 7 grams a day are used, it does lower cholesterol. Metamucil in various forms is psyllium. Methyl Cellulose All the cellulose products come from finely ground wood chips which are then treated in a variety of ways such as boiling in acids. Methyl cellulose is an insoluble fiber which does dissolve in water. It is also an emulsifier, meaning it blends oils and water. Citrucel is methyl cellulose (MC). MC may not be appropriate for Crohn?s disease or ulcerative colitis as several medical studies have shown that certain emulsifiers dissolve the mucous lining of the colon in animals prone to Crohn?s disease. This then allows bacteria to invade the underlying tissue. Inulin Inulin is a soluble prebiotic fiber found in many foods and which are fermented mostly in the left side of the colon. It is available in a supplement as generic inulin and in Fiber Choice. Oligofructose FOS These are also prebiotic fibers. They are fermented very quickly in the right side of the colon. Prebiotin This product is a combination of oligofructose, which feeds the bacteria in the right side of the colon and inulin, which does the same in the left side of the colon. There seems to be a benefit for this particular formula based on medical research. Prebiotic Soluble Fiber These may be the healthiest of all the soluble fibers. They grow in many plants and have had a great deal of research done on them in the last 10-15 years. These fibers are found in asparagus, yams and other root vegetables such as chicory, garlic, onion, leeks and in smaller amounts in wheat. This research has shown the following: ? Increase in good and decrease in bad colon bacteria ? Increase calcium absorption and enhanced bone mass ? Enhanced immune system ? Appetite and weight control by changing the hormone appetite signals to the brain ? May decrease colon cancer incidence ? Reduce or correct a leaky colon Eating a wide variety of plant food up to the recommended amount will likely give you enough prebiotic fiber. Supplements such as Prebiotin can be added to the diet. Short Chain Fatty Acids (SCFA) Some rather remarkable research findings have shown that one of the benefits of ingesting a lot of soluble fiber, in particular the prebiotic ones, results in larger amounts of SCFAs in the colon. These SCFAs are made by the good bacteria in the colon such as Bifidobacter and Lactobacillus. These small molecules have been shown to do the following: ? Enhance the health and integrity of the colon wall ? Provide nourishment for the cells that actually line the colon ? Increases the acidity of the colon which is a very real health benefit ? Stabilize blood sugar for diabetics ? Reduce blood cholesterol and triglyceride ? Significantly enhance immunity ? May be a benefit for Crohn?s disease and ulcerative colitis patients Fiber and Gas Everyone has intestinal gas and that is a good thing. It means that bacteria, hopefully the good ones, are thriving. The normal amount of flatus passed each day depends on sex and what is eaten. The normal number of flatus is 10-20 times a day. When the bacteria that make intestinal gases are growing, it also means that other good bacteria are using the same fibers to grow and produce multiple health benefits, including the production of healthy short-chain fatty acids. These substances are produced quietly in the colon and produce many health-related outcomes. Soluble fiber should always be used in a gradual manner. If too much is consumed at any one time, then excess, but harmless, intestinal gas can occur. People with irritable bowel syndrome are particularly prone to bloating and mild cramping. In this instance, soluble fiber in the diet or supplement should be used in small doses and increased gradually. Finally, prebiotic fibers tend to cause the production of short-chain fatty acids which acidify the colon. This, in turn, reduces or stops the growth of bacteria that make the smelly hydrogen sulfide gases that produce noxious flatus. People who consume many vegetables with prebiotics or take a prebiotic fiber supplement often have non-odoriferous flatus. Fiber and Irritable Bowel Syndrome Irritable bowel syndrome (IBS) is one of the most common disorders of the lower digestive tract. The symptoms of IBS can be quite varied. They can be a mix of several symptoms such as constipation, diarrhea, crampy abdominal discomfort, bloating and gas. An attack of IBS can be triggered by emotional tension and anxiety, poor dietary habits and certain medications. It is now known that infections in the intestine can lead to long-term IBS symptoms. Increased amounts of fiber in the diet can help relieve the symptoms of irritable bowel syndrome by producing soft, bulky stools. This helps to normalize the time it takes for the stool to pass through the colon. Recent medical research with newer techniques has shown some surprising and dramatic findings for IBS patients. Specifically, there is a very significant and abnormal shift of bacteria from those that provide health benefits to those bad bacteria that we really do not want in the gut. The technical name for this bad group of bacteria is called Firmicutes. Along with this abnormal bacterial collection, there is a smoldering low-grade inflammation in the gut wall that may contribute to symptoms. The goal for IBS patients should be to gradually increase the soluble dietary fibers in the diet so as to promote the growth of good bacteria and so suppress the bad ones along with the associated inflammation. IBS patients need to be careful of the amount of soluble fiber they consume. The reason for this is that, while the good colon bacteria thrive on these fibers and produce health benefits, other gas-forming bacteria may generate excessive but harmless gas and subsequent bloating. Thus, soluble plant fibers or a dietary prebiotic supplement should be taken in small initial doses and then gradually increased to tolerance. Fiber and Colon Polyps/Cancer Colon cancer is a major health problem. This disease is most common in Western cultures. It is not seen very often in rural cultures where the diet is mostly plant based. Usually, colon cancer starts out as a colon polyp, a benign mushroom-shaped growth. In time it grows, and in some people it becomes cancerous. Colon cancer is usually always curable if polyps are removed when found or if surgery is performed at an early stage. It is now known that people can inherit the risk of developing colon cancer, but diet is important, too. As noted, there is a very low rate of colon cancer in residents of countries where grains are unprocessed and retain their fiber. It seems that in the Western world, cancer-containing agents (carcinogens) remain in contact with the colon wall for a longer time and in higher concentrations. So, a large bulky stool may act to dilute these carcinogens by moving them through the bowel more quickly. Less carcinogenic exposure to the colon may mean fewer colon polyps and less cancer. A very current review of the entire world?s literature on the effect of fiber on colon polyps and cancer prevention has shown rather clearly that for every 10 grams of fiber added to the diet, there is a 10% reduction in incidence of colon cancer. So the recommended 30 gram fiber diet would result in a 30% less chance of getting these tumors. There are also substances produced in the colon by the good bacteria that seem to retard certain pre-cancer factors from developing. They are called short-chain fatty acids (SCFA). See above for description of SCFAs. A high fiber diet increases these substances. So, the combination of dietary fiber and the production of short-chain fatty acids have a clear health benefit. Fiber and Diverticulosis Prolonged, vigorous contraction of the colon over a long period of time may result in diverticulosis. This increased pressure causes small and, eventually, larger ballooning pockets to form. These pockets by themselves cause no problem. However, sometimes they become infected (diverticulitis) or even break open (perforate) causing infection or inflammation within the abdomen (peritonitis). A high fiber diet increases the bulk in the stool and thereby reduces the pressure within the colon. By so doing, the formation of pockets may be reduced or possibly even stopped. In the past, many physicians were fearful that seeds as in tomatoes, nuts or berries were harmful and could get inside these pockets and rattle around, causing damage. We now know that this has never been the case and that these foods contain lots of fiber and are actually beneficial for diverticulosis patients. Certain bulking agents such as psyllium are traditional types of bulk producing supplements. Psyllium is a soluble fiber. Combining it with insoluble fiber as in wheat bran or corn bran (no gluten) can enhance this bulking effect even more. A product containing a prebiotic, psyllium and wheat bran is probably a very good combination for bowel regularity. Prebiotin Regularity/Diverticulosis is one such product. Activity:: No lifting over 20 pounds or strenuous activity x24 hours. Diet:: Small light meals x24 hours. Discharge Orders Discharge Orders: Discharge Order (Routine); Ordered 11/02/20 Ordered By: Cecily Prince DS: Diagnosis Discharge Diagnosis (1) Tubular adenoma of colon: Status: Acute
--- NOTE | 2020-11-02 10:40 | BOWEL_PTH ---
PATIENT: Shahzad Ray LOC: [facility] U#:[id number] AGE/SX: 79/M ROOM: RE11/02/[address]: Cecily Prince : 1940 BED: DIS: 11/02/2020 SPEC #: [id number] RECD: 11/02/20 12:49 STATUS: MAGEN REQ #: [id number] CHAPIS: 11/02/20 10:[address]: Cecily Prince DEPT: Surgical Specimen RECD BY: Reva Almeida ENTERED: 11/02/20 12:50 SP TYPE: Bowel OTHR DR: Charissa Mendez Tissues: 1 - BIOPSY BOWEL 2 - BIOPSY BOWEL 3 - BIOPSY BOWEL Procedures: GROSS AND MICRO LEVEL 4 Comments: [id number]
--- NOTE | 2020-11-02 10:57 | COLE_ITS ---
Date of service: 11/02/20 Time of Service: 10:58 Colonoscopy Report Date of procedure: 11/02/20 Pre-op diagnosis general: gram neg sepsis Post-op diagnosis procedure note: other (diverticula) Procedure: biopsy x3 Surgeon: Cecily Prince Anesthesia Type: General:No Airway Estimated blood loss (mL): 0 Pathology: other Complications: None Disposition: same day Prep: Miralax/Dulcolax Retraction Time: 10 mins Procedure Description: After informed consent was obtained the patient was taken to the procedure room and placed in a left decubitous position. Monitors were applied and a time out was done. The patients name, date of , procedure, allergies to medications and metal in their body was reviewed. The patient was then sedated. Once sedated and comfortable a rectal exam was done. External exam was normal. Internal exam revealed a normal sphincter tone and no palpable masses. The scope was then introduced and retrofelexed. no internal hemorrhoids were id entified. The scope was then advanced to the cecum w/out difficulty. The TI and appendiceal orifice were identified. The prep was good. The scope was then slowly retracted over 10 minutes back into the rectum. THere were no polyp or AVM's visulaized today. 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 There are no signs of active bleeding or infection. Biopsies were taken of the cecum, transverse colon/60 cm and rectum. All specimens are retrieved and no bleeding is noted. There is no signs of any acute infection of the diverticula. There is no signs of any inflammation. There is no significant scarring. The colon is of normal caliber and contour. The scope was removed and the patient was woken up and taken back to Same day surgery in stable condition. The patient tolerated the procedure well and there were no immediate complications. Follow up: The patient does not require another screening colonoscopy, unless they develop changes in bowel habits or other new gastrointestinal complaints.
[2020-11-02 11:35] VITALS: BP 118/71; PULSE 58; RESP 16; TEMP 36.4; O2SAT 94
== END 2020-11-02 12:10 | disposition home or self-care (01) ==
PROVIDERS: PCP Internal Medicine; Visit Provider Surgery
PROC: 0DJD8ZZ Inspection of Lower Intestinal Tract, Via Natural or Artificial Opening Endoscopic (ICD-10-PCS; CPT 45378; principal; 2020-11-02 10:00)
DX: Z86.010 Personal history of colon polyps; Z80.0 Family history of malignant neoplasm of digestive organs; A41.50 Gram-negative sepsis, unspecified; I10 Essential (primary) hypertension; K63.89 Other specified diseases of intestine; K57.30 Diverticulosis of large intestine without perforation or abscess without bleeding
CPT/HCPCS: 45380; 88305; J2001; J2405

== ENCOUNTER 2022-09-08 09:39 | Emergency (ER) | payer OTHER, SELFPAY ==
[2022-09-08 09:57] VITALS: BP 161/89; PULSE 79; RESP 18; TEMP 36.9; O2SAT 95
--- NOTE | 2022-09-08 10:11 | ED.GENADUL_ITS ---
Discharge Plan Disposition Patient Disposition: Home Condition: Good Discharge Details Clinical Impression: Acute pain of right hip, Acute pain of right foot Primary Care Provider: Ashley Burr ED Provider: Enmanuel Hammer Home Meds and New Rx's Prescriptions: New prednisone 50 mg tablet 50 mg PO DAILY Qty: 5 0RF No Action cyclobenzaprine 15 mg capsule,extended release 24hr 15 mg PO QHS PRN cetirizine 10 mg tablet 10 mg PO DAILY aspirin 81 MG tablet,chewable 81 mg PO DAILY albuterol sulfate [ProAir HFA] 8.5 GM HFA aerosol inhaler 1 - 2 puff Inhalation Q6H PRN multivitamin [Daily Value] 1 EACH tablet 1 ea PO DAILY ascorbic acid (vitamin C) [Vitamin C] 1,000 MG tablet 1,000 mg PO DAILY coenzyme Q10 50 MG capsule 100 mg PO DAILY niacinamide [Niacin (niacinamide)] 500 MG tablet 500 mg PO DAILY omega-3 fatty acids-fish oil 1 EACH capsule 1 ea PO DAILY cpap aerosol 0RF testosterone 0RF amlodipine 2.5 mg tablet 2.5 mg PO DAILY levofloxacin 750 mg tablet 750 mg PO DAILY atorvastatin 20 mg tablet 20 mg PO DAILY Label Comments: TK 1 T PO QD ferrous sulfate 325 mg (65 mg iron) tablet 325 mg PO DAILY Label Comments: TK 1 T PO D WITH VITAMIN-C Rx Instructions: take with vitamin C losartan 100 mg tablet 100 mg PO DAILY Label Comments: TAKE 1 TABLET BY MOUTH EVERY DAY loratadine 10 mg Tablet 10 mg PO DAILY hydrochlorothiazide 25 mg tablet 25 mg PO DAILY Label Comments: TAKE 1 TABLET BY MOUTH EVERY DAY azelastine 137 mcg (0.1 %) aerosol,spray 2 spray INTRANASAL BID Label Comments: USE 2 SPRAYS IN EACH NOSTRIL TWICE DAILY Caverject Impulse 20 mcg kit 20 mcg INTRA-CAVERNOSAL QWEEK PRN Label Comments: INJECT 1 CARTRIDGE INTRACAVERNOSAL EVERY OTHER DAY NEEDED fluticasone propionate 50 mcg/actuation spray,suspension 2 spray INTRANASAL DAILY Label Comments: INSTILL 2 SPRAYS INTO EACH NOSTRIL QD Discharge Instructions Instructions: Sacroiliitis (ED), Arthralgia (ED) Additional Instructions: At this time your x-rays are negative. There is evidence of arthritis. No evidence of fracture though. Please apply the Voltaren gel as directed. Please take the prednisone as directed. Please follow-up closely with your primary care provider for reassessment. If you notice any worsening of your symptoms, or any new symptoms such as vomiting, diarrhea, fever, chills, shortness of breath, chest pain, numbness, weakness, or fainting , please return immediately to the emergency department for reevaluation. Please follow up with your primary care provider as soon as possible for reassessment and reevaluation. As always, it was a pleasure participating in your medical care today. Referrals: Ashley Burr [Primary Care Provider] - Discharge Data Discharge Date/Time-TO BE ENTERED AT DEPARTURE: 09/08/22 12:02 Medical Decision Making FINDINGS: BONES: No acute fracture is present. No bony destructive lesion is seen. JOINTS: No dislocation present. Degenerative changes are seen in the right hip with joint space narrowing, subchondral sclerosis and acetabular spurring. Similar but more mild changes are seen in the left hip. SOFT TISSUE: Atherosclerosis is present. IMPRESSION: 1. No acute fracture or dislocation. 2. Mild degenerative changes in the hips, right greater than left. FINDINGS: BONES: No acute fracture is present. No bony destructive lesion is seen. There is an osseous density again seen at the tip of the lateral malleolus. There is again seen a well corticated osseous density adjacent to the posterior malleolus on the lateral view. There is a small enthesophyte at the Achilles insertion site. JOINTS: The ankle mortise is normally aligned. SOFT TISSUE: Normal. IMPRESSION: No acute abnormality. HPI General Date/Time Provider Initiated Documentation: 09/08/22 09:43 . HPI Narrative: 81-year-old male with no significant past medical history except for hypertension, previous right ankle injury, and some chronic back pain, high cholesterol, asthma, who presents today for evaluation of right hip and right ankle pain. Patient had a vigorous episode of snowshoeing about a week ago, after this his pain gradually developed in his right hip, and then subsequently his foot over the last few days. Pain is made worse with movement. He did see his primary care provider who prescribed tramadol. This minimally helps. He denies any associated numbness or tingling. He denies any falls or trauma otherwise. He denies any saddle anesthesia, weakness, or other complaint. No other complaints at this time. No other modifying factors. Related Data Home Medications Medication Instructions Recorded Confirmed albuterol sulfate 90 mcg/actuation 1 - 2 puff inhalation Q6H PRN 11/17/17 09/17/21 aerosol inhaler (ProAir HFA) ascorbic acid (vitamin C) 1,000 mg 1,000 mg PO DAILY 11/17/17 09/17/21 tablet (Vitamin C) aspirin 81 mg chewable tablet 81 mg PO DAILY 11/17/17 09/17/21 coenzyme Q10 50 mg capsule 100 mg PO DAILY 11/17/17 09/17/21 multivitamin (Daily Value tablet) 1 ea PO DAILY 11/17/17 09/17/21 niacinamide 500 mg tablet (Niacin 500 mg PO DAILY 11/17/17 09/17/21 (niacinamide)) omega-3 fatty acids-fish oil 300 1 ea PO DAILY 11/17/17 09/17/21 mg-1,000 mg capsule atorvastatin 20 mg tablet 20 mg PO DAILY 07/24/20 09/17/21 ferrous sulfate 325 mg (65 mg 325 mg PO DAILY 07/24/20 09/17/21 iron) tablet loratadine 10 mg tablet 10 mg PO DAILY 07/24/20 09/17/21 losartan 100 mg tablet 100 mg PO DAILY 07/24/20 09/17/21 alprostadil 20 mcg intracavernosal 20 mcg intra-cavernosal QWEEK PRN 07/25/20 09/17/21 kit (Caverject Impulse) azelastine 137 mcg (0.1 %) nasal 2 spray intranasal BID 07/25/20 09/17/21 spray aerosol fluticasone propionate 50 2 spray intranasal DAILY 07/25/20 09/17/21 mcg/actuation nasal spray,suspension hydrochlorothiazide 25 mg tablet 25 mg PO DAILY 07/25/20 09/17/21 amlodipine 2.5 mg tablet 2.5 mg PO DAILY 09/26/20 09/17/21 cyclobenzaprine 15 mg 15 mg PO QHS PRN 10/04/20 09/17/21 capsule,extended release 24 hr levofloxacin 750 mg tablet 750 mg PO DAILY 09/04/21 09/17/21 cetirizine 10 mg tablet 10 mg PO DAILY 09/17/21 09/17/21 prednisone 50 mg tablet 50 mg PO DAILY #5 tabs 09/08/22 Previous Rx's Medication Instructions Recorded prednisone 50 mg tablet 50 mg PO DAILY #5 tabs 09/08/22 Allergies Allergy/AdvReac Type Severity Reaction Status Date / Time tree and shrub pollen AdvReac Mild spring time Unverified 09/08/22 10:03 General Stated Complaint: Orthopedic VICTORIA: 4 Review of Systems All systems reviewed & are unremarkable except as noted in HPI and below PFSH All Active Problems Acute pain of right hip (Acute) Acute pain of right foot (Acute) Sensorineural hearing loss, bilateral (Acute) Impacted cerumen, bilateral (Acute) Change in voice (Acute) Fever (Acute) Sepsis (Acute) Pneumonia (Acute) GERD (gastroesophageal reflux disease) (Chronic) DVT prophylaxis (Acute) Discharge planning issues (Acute) Bradycardia (Acute) Tubular adenoma of colon (Acute 12/04/17) Medical History Conductive hearing loss Impacted cerumen KATHY on CPAP Sensorineural hearing loss Sepsis Surgical History Colonoscopy - MAC (12/04/17) History of colonoscopy (~11/02/20) Family History Father , at 78 Colon cancer Heart disease Mother , at 89 Lung cancer Son Leukemia in remission Daughter Cerebral palsy Brother FHx: mental illness Social History Smoking/Tobacco Use Status: Former Tobacco Use Smoking risk assessment performed?: Yes Alcohol Intake: current Alcohol Intake frequency: a few times a week Alcohol type: wine Drug use: Never Substance use type: does not use 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 3.ENT: Atraumatic external nose and ears. Moist MM. Neck: Symmetric, trachea midline, No thyromegaly. 4.CVS: +S1/S2, No murmurs or gallops. Peripheral pulses 2+ and equal in all extremities. Brisk capillary refill in all extremities. 5.RESP: Unlabored respiratory effort. Clear to auscultation bilaterally. No wheezes rales or rhonchi 6.GI: Soft, Nontender/Nondistended, No hepatosplenomegaly. No guarding or rebound. 7.MSK: Normocephalic/Atraumatic, Extremities w/o deformity or ttp No cyanosis or clubbing, Normal movement of all extremities. Minimal achiness over the SI joint on the right. Minimal swelling over the right ankle. However no redness otherwise of significance. Mild pain with dorsiflexion of the right foot. No pain with movement of the hip. Patient ambulates well without a limp. 8.Skin: Warm, Dry. No rashes or lesions. 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 Sensation grossly intact, no focal neurologic deficits. 10.Psych: (AAO) x3. Appropriate mood and affect Course Vital Signs Vital signs: Vital Signs Temperature 36.9 C 09/08/22 09:57 Pulse 79 09/08/22 09:57 Respiratory Rate 18 09/08/22 09:57 Blood Pressure 161/89 H 09/08/22 09:57 Pulse Oximetry 95 09/08/22 09:57 Temperature 36.9 C 09/08/22 09:57 Temperature Source Temporal Artery Scan 09/08/22 09:57 Pulse 79 09/08/22 09:57 Respiratory Rate 18 09/08/22 09:57 Respiratory Effort Non-Labored 09/08/22 10:01 Blood Pressure 161/89 H 09/08/22 09:57 Blood Pressure Position Sitting 09/08/22 09:57 Pulse Oximetry 95 09/08/22 09:57 Oxygen Delivery Method Room Air 09/08/22 09:57 Oxygen Flow Rate 0 09/08/22 09:57 Pain Level 9 09/08/22 09:57 PAWSS Have you Been Recently Intoxicated or Drunk Within the Last 30 days?: No Have you Ever Experienced Previous Episodes of Alcohol Withdrawal?: No Have you ever Experienced Withdrawal Seizures?: No Have you ever Experienced Delirium Tremens(DT)s?: No Have you ever undergone Alcohol Rehabilitation Treatment (i.e, inpt ot outpatient treatment programs)?: No Have you ever Experienced Blackouts?: No Have you ever Combined Alcohol with other Downers within the last 90 days?: No Have you ever Combined Alcohol with any other Substance of Abuse during the last 90 days?: No Positive Blood Alcohol level on Presentation? [PCS.BAL]: No Evidence of Increased Autonomic Activity (i.e. HR>120, tremor, sweating, agitation, nausea)?: No Result: 0
--- NOTE | 2022-09-08 10:14 | NUR.NOTE ---
pt states he went snow shoeing the weekend of 08/30/22, the following Thursday pt began having right sided low back pain that radiates to right knee and foot. was prescribed tramadol without relief. denies hx of sciatica
--- NOTE | 2022-09-08 10:15 | DI.RAD_ITS ---
Exam(s) XR HIP RT COMPLETE AP PELVIS EXAM: XR HIP RT COMPLETE AP PELVIS CLINICAL HISTORY: right hip pain. TECHNIQUE: 2D digital imaging was performed of the right hip. Three images were obtained. AP pelvis and lateral right hip views were obtained. COMPARISON: No exams were available for comparison FINDINGS: BONES: No acute fracture is present. No bony destructive lesion is seen. JOINTS: No dislocation present. Degenerative changes are seen in the right hip with joint space narro wing, subchondral sclerosis and acetabular spurring. Similar but more mild changes are seen in the l eft hip. SOFT TISSUE: Atherosclerosis is present. IMPRESSION: 1. No acute fracture or dislocation. 2. Mild degenerative changes in the hips, right greater than left. DATA REPOSITORY: RADIATION DOSE DELIVERED:
--- NOTE | 2022-09-08 10:15 | DI.RAD_ITS ---
Exam(s) XR ANKLE RT COMPLETE EXAM: XR ANKLE RT COMPLETE CLINICAL HISTORY: right lateral ankle pain. TECHNIQUE: 2D digital imaging was performed of the right ankle. Four images were obtained. AP, lat eral and oblique views were obtained. COMPARISON: CR RIGHT ANKLE 2 VIEW from 07/21/2015 FINDINGS: BONES: No acute fracture is present. No bony destructive lesion is seen. There is an osseous density again seen at the tip of the lateral malleolus. There is again seen a well corticated osseous densi ty adjacent to the posterior malleolus on the lateral view. There is a small enthesophyte at the Ach illes insertion site. JOINTS: The ankle mortise is normally aligned. SOFT TISSUE: Normal. IMPRESSION: No acute abnormality. DATA REPOSITORY: RADIATION DOSE DELIVERED:
[2022-09-08] MEDS: Diclofenac 1% Gel 100 GM TUBE TP (10:35)
[2022-09-08] MEDS: predniSONE 20 MG TAB 60 MG PO (10:35)
--- NOTE | 2022-09-08 11:39 | NUR.NOTE ---
pt ambulatory to restroom with a steady gait
[2022-09-08 11:58] VITALS: BP 117/69; PULSE 67; RESP 18; O2SAT 97
== END 2022-09-08 12:02 | disposition home or self-care (01) ==
PROVIDERS: Emergency Provider Student in an Organized Health Care Education/Training Program; PCP Psychiatry & Neurology Neurology
DX: M25.551 Pain in right hip (principal); M79.671 Pain in right foot
CPT/HCPCS: 99284; 73502; 73610; J7512

== ENCOUNTER 2025-07-26 16:45 | Observation (INO) | payer OTHER, SELFPAY ==
[2025-07-26] VITALS (11 sets, daily range): BP systolic 81–136; BP diastolic 50–72; PULSE 60–78; RESP 13–24; TEMP 36.6; O2SAT 93–96
--- NOTE | 2025-07-26 17:00 | DI.CT_ITS ---
Exam(s) CT LOWER EXTREMITY RT W EXAM: CT LOWER EXTREMITY RT W CLINICAL HISTORY: traumatic hematoma to R medial knee. TECHNIQUE: Imaging Protocol: Axial computed tomography images with coronal and sagittal reformatted images were created and reviewed. CONTRAST MATERIAL: Intravenous: Omnipaque 350 Contrast volume:structured data in ml Contrast route:IV - Oral: yes / no COMPARISON: No exams were available for comparison FINDINGS: Bones: There are no fractures. No significant knee joint effusion. No significant degenerative changes in the knee. No incidental osseous lesions. SOFT TISSUES: There is a large acute appearing hematoma in the subcutaneous tissues on the medial aspect of the lower thigh, this measuring 10 cm craniocaudal length by 3 cm wide by 8 cm AP. In addition to the large size of this hematoma there is also multiple foci of linear contrast extravasation ind icating active bleeding IMPRESSION: Large medial thigh hematoma which exhibits active bleeding into the hematoma at time of image acquisition. No fractures evident. \ preliminary V rad report was reviewed RADIATION DOSE DELIVERED: 430.65mGy.cm Total DLP DATA REPOSITORY: All CT scans at this facility are submitted to the National Radiology Data Registry (NRDR) Dose Index Registry (DIR) with the [employer] (A[employer]). RADIATION OPTIMIZATION: All CT scans at this facility use at least one of these dose optimization techniques: automated exposure control; mA and/or kV adjustment per patient size (includes targeted exams where dose is matched to clinical indication); or iterative reconstruction.
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
[2025-07-26] MEDS: Acetaminophen 325 MG TAB 650 MG PO (17:11)
[2025-07-26] MEDS: Normal Saline - Diluent 50 ML VIAL IJ (17:14)
[2025-07-26] MEDS: Omnipaque 350 MG/ML 100 ML BTL IJ (17:14)
[2025-07-26] MEDS: Normal Saline Flush 10 ML SYR IVP (17:18)
[2025-07-26 17:20] LABS: Abs Immature Grans 0.01 10^3/uL (0.0-0.06); HCT 43.7 % (40.0-50.0); HGB 13.8 g/dL (13.5-17.5); Immature Grans % 0.1 %; MCH 26.9 pg (27.0-33.0); MCHC 31.6 % (32.0-36.0); MCV 85 fL (80-95); MPV 9.4 fL (8.0-11.0); Platelet Count 204 10^3/uL (130-400); RBC 5.13 10^6/uL (4.36-5.78); RDW 14.6 % (11.8-14.1); RDW-SD 45.8 fL; WBC 6.74 10^3/uL (4.4-10.8)
[2025-07-26 17:35] LABS: INR 1.0 (0.9-1.1); PTT Activated 25.2 sec (20.6-30.2); Prothrombin Time 10.2 sec (9.1-11.1)
[2025-07-26 17:37] LABS: ALT 14 U/L (10-49); AST 23 U/L (<34); Albumin 4.2 g/dL (3.2-5.0); Alkaline Phosphatase 87 U/L (46-116); Anion Gap 6.6 mmol/L (3-11); BUN 17 mg/dL (9-23); Bilirubin, Total 0.7 mg/dL (0.2-1.2); CO2 29.4 mmol/L (20.0-31.0); Calcium 9.5 mg/dL (8.3-10.6); Chloride 105 mmol/L (98-107); Glucose 92 mg/dL (74-106); Potassium 4.2 mmol/L (3.5-5.1); Sodium 141 mmol/L (136-145); Total Protein 6.7 g/dL (5.7-8.2)
--- NOTE | 2025-07-26 18:43 | DI.VRAD_ITS ---
Addendum created by Dylan Gomez MD on 07/26/2025 6:46:39 PM EST: THIS REPORT CONTAINS FINDINGS THAT MAY BE CRITICAL TO PATIENT CARE. The findings were verbally communicated via telephone conference with AURORA SOOD at 6:46 PM EST on 07/26/2025. The findings were acknowledged and understood. Initial report created on 07/26/2025 6:42:51 PM EST: PROCEDURE INFORMATION: Exam: CT Right Lower Extremity With Contrast Exam date and time: 07/26/2025 5:11 PM Age: 84 years old Clinical indication: Other: Traumatic hematoma to R medial knee; Additional info: Traumatic hematoma to R medial knee, R/O jena abnormalities as well as active bleed TECHNIQUE: Imaging protocol: CT of the right lower extremity with intravenous contrast was performed. Total images: 3633 Contrast material: 350; Contrast volume: 100 ml; Contrast route: INTRAVENOUS (IV); COMPARISON: CT ABDOMEN PELVIS W 07/26/2020 3:49 PM FINDINGS: Bones/joints: No fracture. Osteoarthritis. No hemoarthrosis. Soft tissues: Hematoma medial subcutaneous tissues measuring 10 cm cephalo caudad by 8 cm AP by 3 cm transverse. Within the hematoma are foci of linear contrast extravasation. Surrounding subcutaneous bruising. IMPRESSION: Active bleeding into a medial subcutaneous hematoma. Dictated and Authenticated by: Dylan Gomez MD. Orderin Marcel Goldstein MD
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
[2025-07-26] MEDS: Ibuprofen 800 MG TAB PO (22:15)
--- NOTE | 2025-07-26 22:47 | RESPIRATORY ---
Pt's has brought in his own CPAP machine, [employer]. It is Auto CPAP 6-15, has humidifier attached with no O2 bleed in baseline. It's intact, looks pretty new, pt. stated recently replaced with new one. Pt. unsure of it's DME but stated he gets it's supplies in [place].
[2025-07-27 00:33] LABS: ALT 12 U/L (10-49); AST 19 U/L (<34); Albumin 3.7 g/dL (3.2-5.0); Alkaline Phosphatase 79 U/L (46-116); Anion Gap 7.4 mmol/L (3-11); BUN 15 mg/dL (9-23); Bilirubin, Total 0.6 mg/dL (0.2-1.2); CO2 29.6 mmol/L (20.0-31.0); Calcium 8.8 mg/dL (8.3-10.6); Chloride 105 mmol/L (98-107); Glucose 170 mg/dL (74-106); Potassium 3.5 mmol/L (3.5-5.1); Sodium 142 mmol/L (136-145); Total Protein 5.7 g/dL (5.7-8.2)
[2025-07-27 05:52] LABS: Abs Immature Grans 0.01 10^3/uL (0.0-0.06); HCT 39.2 % (40.0-50.0); HGB 12.2 g/dL (13.5-17.5); Immature Grans % 0.2 %; MCH 26.6 pg (27.0-33.0); MCHC 31.1 % (32.0-36.0); MCV 86 fL (80-95); MPV 9.8 fL (8.0-11.0); Platelet Count 182 10^3/uL (130-400); RBC 4.58 10^6/uL (4.36-5.78); RDW 14.7 % (11.8-14.1); RDW-SD 46.3 fL; WBC 5.57 10^3/uL (4.4-10.8)
[2025-07-27 06:03] LABS: INR 1.1 (0.9-1.1); Prothrombin Time 10.4 sec (9.1-11.1)
[2025-07-27 08:01] VITALS: BP 106/64; PULSE 58; RESP 16; TEMP 35.9; O2SAT 98
[2025-07-27] MEDS: Omega-3 Fatty Acids 1000 MG CAP PO (09:04)
[2025-07-27] MEDS: Ascorbic Acid 500 MG TAB 1000 MG PO (09:04)
[2025-07-27] MEDS: Multivitamin TAB 1 TAB PO (09:05)
[2025-07-27] MEDS: Losartan 50 MG TAB 100 MG PO (09:05)
[2025-07-27] MEDS: Niacin 500 MG TAB PO (09:05)
[2025-07-27] MEDS: Cetirizine 10 MG TAB PO (09:05)
[2025-07-27] MEDS: amLODIPine 2.5 MG TAB PO (09:05)
[2025-07-27] MEDS: Ibuprofen 800 MG TAB PO (09:06)
[2025-07-27] MEDS: Atorvastatin 20 MG TAB PO (09:06)
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
== END 2025-07-27 12:32 | disposition home or self-care (01) ==
LOC: ER 19:50 → MS 20:48
PROVIDERS: Admitting Provider Hospitalist; Emergency Provider Nurse Practitioner Family; Responsible Provider Family Medicine; Visit Provider Hospitalist
DX: S80.11XA Contusion of right lower leg, initial encounter (principal); V86.62XA Passenger of snowmobile injured in nontraffic accident, initial encounter; G47.33 Obstructive sleep apnea (adult) (pediatric); H90.3 Sensorineural hearing loss, bilateral; E78.5 Hyperlipidemia, unspecified; I10 Essential (primary) hypertension; K21.9 Gastro-esophageal reflux disease without esophagitis; Z79.82 Long term (current) use of aspirin; Z79.899 Other long term (current) drug therapy
CPT/HCPCS: 00123; 36415; 80053; 99285; 73701; 85025; 85610; 85730; 99222; 99238; G0378; J3490